=== PATIENT | female | born 1985 | race Caucasian/White ===

== ENCOUNTER 2016-09-01 09:18 | Emergency (ER) | payer OTHER ==
[2016-09-01] MEDS ORDERED: PENICILLIN G BENZATHINE 600,000 UNIT/ML SYRINGE IM STA (09:33)
[2016-09-01] MEDS ORDERED: DEXAMETHASONE 10 MG/ML VIAL PO STA (09:33)
[2016-09-01] MEDS ORDERED: DEXAMETHASONE 10 MG/ML VIAL ONE (10:09)
[2016-09-01] MEDS ORDERED: CHERRY SYRUP 10 ML UDC PO ONE (10:09)
[2016-09-01] MEDS ORDERED: PENICILLIN G BENZATHINE 600,000 UNIT/ML SYRINGE IM ONE ×2 (10:10→10:17)
== END 2016-09-01 10:35 | disposition home or self-care (01) ==
DX: J02.9 Acute pharyngitis, unspecified (principal)
CPT/HCPCS: 81025; 87070; 87430; 96372; 99283; A9270

== ENCOUNTER 2017-03-04 11:20 | Emergency (ER) | payer OTHER ==
[2017-03-04 11:58] LABS: BILIRUBIN,URINE NEGATIVE (NEGATIVE)
[2017-03-04 12:01] LABS: HCG UR QUAL NEGATIVE; UA w/ MICROSCOPIC CHARGE YES
[2017-03-04 12:27] LABS: UR CULTURE IF IND NOT INDICATED
[2017-03-04] MEDS ORDERED: cefTRIAXone 1 GM VIAL IM STA (12:56)
[2017-03-04] MEDS ORDERED: LIDOCAINE 1% 2 ML VIAL ONE (13:03)
[2017-03-04] MEDS ORDERED: cefTRIAXone 1 GM VIAL ONE (13:03)
--- NOTE | 2017-03-04 13:11 | ED Physician Documentation ---
PD HPI FEMALE - Stated complaint Stated Complaint: FEMALE - Chief complaint Chief Complaint: Abd Pain - History obtained from History obtained from: Patient - History of Present Illness Timing - onset: How many days ago (3) Timing - duration: Days (3) Timing - details: Gradual onset, Still present Associated symptoms: Back pain, Dysuria, Urinary frequency Contributing factors: No: Similar symptoms before: Diagnosis (UTI) Recently seen: Not recently seen - Additional information Additional information: 31-year-old female with symptoms of urinary urgency frequency and dysuria for the past 3 days has begun to develop some pain in her right flank and some nausea today. She has had low-grade fever. Review of Systems Constitutional: reports: Fever, Myalgias Eyes: denies: Decreased vision Ears: denies: Ear pain Nose: denies: Rhinorrhea / runny nose, Congestion Throat: denies: Sore throat Cardiac: denies: Chest pain / pressure Respiratory: denies: Dyspnea, Cough GI: reports: Abdominal Pain, Nausea. denies: Vomiting, Diarrhea : reports: Dysuria, Frequency Skin: denies: Rash Musculoskeletal: reports: Back pain. denies: Neck pain, Extremity pain Neurologic: denies: Generalized weakness, Focal weakness PD PAST MEDICAL HISTORY - Past Medical History Past Medical History: No - Past Surgical History Past Surgical History: No - Present Medications Home Medications: Ambulatory Orders Medication Instructions Recorded Confirmed Sulfamethoxazole/Trimethoprim 1 each PO BID #14 tablet 03/04/17 [Sulfamethoxazole-Tmp Ds Tablet] - Allergies Allergies/Adverse Reactions: Allergies Allergy/AdvReac Type Severity Reaction Status Date / Time No Known Drug Allergies Allergy Verified 03/04/17 11:28 - Social History Does the pt smoke?: No Smoking Status: Never smoker Does the pt drink ETOH?: No Does the pt have substance abuse?: No - Immunizations Immunizations are current?: Yes - POLST Patient has POLST: No PD ED PE NORMAL - Vitals Vital signs reviewed: Yes (Normal) - General General: No acute distress, Well developed/nourished - HEENT HEENT: Atraumatic, PERRL, EOMI - Neck Neck: Supple, no meningeal sign - Cardiac Cardiac: RRR, No murmur - Respiratory Respiratory: No respiratory distress, Clear bilaterally - Abdomen Abdomen: Soft, Non tender - Back Back: No spinal TTP, Other (right CVA tenderness to bimanual palpation) - Derm Derm: Normal color, Warm and dry, No rash - Extremities Extremities: No deformity, No edema - Neuro Neuro: No motor deficit, No sensory deficit - Psych Psych: Normal mood, Normal affect Results - Vitals Vitals: Vital Signs - 24 hr 03/04/17 11:25 Temperature 36.5 C Heart Rate 66 Respiratory 98 H Rate Blood Pressure 118/74 O2 Saturation 98 Oxygen O2 Source Room air - Labs Labs: Laboratory Tests 03/04/17 11:50 Urine Color YELLOW Urine Clarity HAZY Urine pH 6.0 Ur Specific [place] 1.020 Urine Protein NEGATIVE Urine Glucose (UA) NEGATIVE Urine Ketones NEGATIVE Urine Occult Blood TRACE-INTA Urine Nitrite NEGATIVE Urine Bilirubin NEGATIVE Urine Urobilinogen 0.2 (NORMAL) Ur Leukocyte Esterase SMALL H Urine RBC 6-10 H Urine WBC 6-10 H Ur Squamous Epith Cells MOD Squamous H Urine Bacteria Few Ur Microscopic Review INDICATED Urine Culture Comments NOT INDICATED Urine HCG, Qual NEGATIVE PD MEDICAL DECISION MAKING - ED course Complexity details: reviewed old records, reviewed results, re-evaluated patient , considered differential, d/w patient ED course: 31-year-old female with urinary symptoms and right flank pain has blood and white cells and bacteria in her urine urine does not make culture grade. She is treated in the emergency department with Rocephin IM and we will put her on some . Departure - Departure Disposition: 01 Home, Self Care Clinical Impression: Pyelonephritis Condition: Stable Instructions: ED Kidney Infec Female Follow-Up: JOZEF Mares [Provider Group] Prescriptions: Sulfamethoxazole/Trimethoprim [Sulfamethoxazole-Tmp Ds Tablet] 1 each PO BID # 14 tablet
[2017-03-04 13:22] VITALS: BP 114/71
== END 2017-03-04 13:21 | disposition home or self-care (01) ==
LOC: ED 11:20
DX: N12 Tubulo-interstitial nephritis, not specified as acute or chronic (principal)
CPT/HCPCS: 81001; 81003; 81025; 87086; 88108; 88305; 96372; 99283

== ENCOUNTER 2017-03-31 17:01 | Emergency (ER) | payer OTHER ==
[2017-03-31] MEDS ORDERED: AMOX/CLAV 875 MG/125 MG TABLET PO STA (17:02)
--- NOTE | 2017-03-31 17:04 | ED Physician Documentation ---
PD HPI ANIMAL BITE - Stated complaint Stated Complaint: R WRIST INJ - History obtained from History obtained from: Patient - History of Present Illness Location of injury(ies): Other (She was breaking up a dog fight and her son was seriously injured, she has a laceration on the anterior right wrist, tetanus is up-to-date.) Review of Systems Constitutional: reports: Reviewed and negative Cardiac: reports: Reviewed and negative Respiratory: reports: Reviewed and negative PD PAST MEDICAL HISTORY - Past Surgical History Past Surgical History: No - Present Medications Home Medications: Ambulatory Orders Medication Instructions Recorded Confirmed Sulfamethoxazole/Trimethoprim 1 each PO BID #14 tablet 03/04/17 [Sulfamethoxazole-Tmp Ds Tablet] Amox/Clav 875/125 [Augmentin] 1 each PO Q12H #14 tablet 03/31/17 - Allergies Allergies/Adverse Reactions: Allergies Allergy/AdvReac Type Severity Reaction Status Date / Time No Known Drug Allergies Allergy Verified 03/04/17 11:28 - Social History Does the pt smoke?: No Smoking Status: Never smoker Does the pt drink ETOH?: No Does the pt have substance abuse?: No - Immunizations Immunizations are current?: Yes - POLST Patient has POLST: No PD ED PE NORMAL - Vitals Vital signs reviewed: Yes - General General: Alert and oriented X 3, No acute distress - Extremities Extremities: Other (2 puncture wounds to the anterior right wrist with normal neurovascular status distal that good range of motion but some tenderness underlying this.) - Neuro Neuro: Alert and oriented X 3, Normal speech - Psych Psych: Normal mood, Normal affect Results - Vitals Vitals: Oxygen O2 Source Room air PD MEDICAL DECISION MAKING - ED course ED course: I would normally have xrayed the wrist but she was flying to [facility] With her critically ill son And as such we were fairly rushed. She is understanding that she will seek reevaluation if pain or symptoms are persistent and she was started on Augmentin. Tetanus was up-to-date. Departure - Departure Disposition: 01 Home, Self Care Clinical Impression: Dog bite of right wrist Qualifiers: Encounter type: initial encounter Qualified Code(s): S61.551A - Open bite of right wrist, initial encounter Condition: Good Record reviewed to determine appropriate education?: Yes Instructions: ED Bite Dog Prescriptions: Amox/Clav 875/125 [Augmentin] 1 each PO Q12H #14 tablet Comments: If you have persistent pain or any evidence of wound infection including swelling, drainage, fever, please seek reevaluation for further workup given the rapidity of your visit and getting your son transferred.
[2017-03-31] MEDS ORDERED: AMOX/CLAV 875 MG/125 MG TABLET PO ONE (17:09)
== END 2017-03-31 17:10 | disposition home or self-care (01) ==
LOC: ED 17:01
DX: S61.551A Open bite of right wrist, initial encounter (principal); W54.0XXA Bitten by dog, initial encounter; Y93.89 Activity, other specified
CPT/HCPCS: 99283; A9270

== ENCOUNTER 2017-10-12 12:46 | Emergency (ER) | payer OTHER ==
--- NOTE | 2017-10-12 14:08 | ED Physician Documentation ---
History of Present Illness - Stated complaint Stated Complaint: BILAT FLANK PX/ABD PX - Chief complaint Chief Complaint: General - History obtained from History obtained from: Patient - History of Present Illness Timing: Other (She has frequent UTIs and usually self treats with pushing fluids , she has had classic UTI symptoms with burning and frequency for a few days but today has bilateral flank pain, right more than left with nausea but no vomiting or fever.) Review of Systems Constitutional: denies: Fever, Chills Cardiac: denies: Chest pain / pressure, Palpitations Respiratory: denies: Dyspnea, Cough GI: reports: Abdominal Pain, Nausea. denies: Vomiting, Constipation, Diarrhea : reports: Dysuria, Frequency PD PAST MEDICAL HISTORY - Past Medical History Past Medical History: No - Past Surgical History Past Surgical History: No - Present Medications Home Medications: Ambulatory Orders Medication Instructions Recorded Confirmed Cephalexin [Keflex] 500 mg PO QID #28 capsule 10/12/17 Ondansetron HCl [Zofran] 4 mg PO Q6H PRN #10 tablet 10/12/17 - Allergies Allergies/Adverse Reactions: Allergies Allergy/AdvReac Type Severity Reaction Status Date / Time No Known Drug Allergies Allergy Verified 10/12/17 13:05 - Social History Does the pt smoke?: No Smoking Status: Never smoker Does the pt drink ETOH?: No Does the pt have substance abuse?: No - Immunizations Immunizations are current?: Yes - POLST Patient has POLST: No PD ED PE NORMAL - Vitals Vital signs reviewed: Yes - General General: Alert and oriented X 3, No acute distress - Abdomen Abdomen: Normal bowel sounds, Soft, Non tender - Back Back: Other (Moderate right flank tenderness) - Derm Derm: Normal color, Warm and dry - Neuro Neuro: Alert and oriented X 3, Normal speech Results - Vitals Vitals: Vital Signs - 24 hr 10/12/17 13:00 Temperature 36.8 C Heart Rate 68 Respiratory 15 Rate Blood Pressure 117/74 O2 Saturation 96 Oxygen O2 Source Room air - Labs Labs: Laboratory Tests 10/12/17 14:00 Urine Color ORANGE Urine Clarity CLEAR Urine pH 5.0 Ur Specific [place] 1.020 Urine Protein Urine Glucose (UA) Urine Ketones NEGATIVE Urine Occult Blood NEGATIVE Urine Nitrite Urine Bilirubin NEGATIVE Urine Urobilinogen Ur Leukocyte Esterase Urine RBC None Seen Urine WBC 0-3 Ur Squamous Epith Cells RARE Squamous Urine Bacteria Rare Ur Microscopic Review INDICATED Urine Culture Comments NOT INDICATED Urine HCG, Qual NEGATIVE PD MEDICAL DECISION MAKING - ED course ED course: Seems pretty consistent with pyelonephritis despite uninterpretable urine due to phenazopyridine use we will treat as such. No abdominal tenderness. Departure - Departure Disposition: Home, Self Care Clinical Impression: Pyelonephritis Condition: Good Record reviewed to determine appropriate education?: Yes Instructions: Pyelonephritis Dc Prescriptions: Cephalexin [Keflex] 500 mg PO QID #28 capsule Ondansetron HCl [Zofran] 4 mg PO Q6H PRN #10 tablet PRN Reason: Nausea / Vomiting Comments: Call your doctor to arrange a follow-up appointment, make the next available appointment. In the interim, return anytime if worse or if new symptoms develop.
[2017-10-12 14:10] LABS: BILIRUBIN,URINE NEGATIVE (NEGATIVE); KETONES,URINE (UA) NEGATIVE (NEGATIVE); OCCULT BLOOD,URINE NEGATIVE (NEGATIVE)
[2017-10-12 14:11] LABS: CLARITY,URINE CLEAR (CLEAR)
[2017-10-12 14:12] LABS: HCG UR QUAL NEGATIVE
[2017-10-12 14:18] LABS: BACTERIA,URINE Rare /HPF (None Seen); RBC,URINE None Seen /HPF (0-5); SQUAMOUS EPITHELIAL CELL,UR RARE Squamous (<= Few)
[2017-10-12] MEDS ORDERED: cefTRIAXone 1 GM VIAL IM STA (14:30)
[2017-10-12] MEDS ORDERED: ONDANSETRON ODT 4 MG TABLET TL STA (14:30)
[2017-10-12] MEDS ORDERED: LIDOCAINE 1% 2 ML VIAL SUBQ ONE (14:30)
[2017-10-12 14:42] VITALS: BP 116/65
== END 2017-10-12 14:41 | disposition home or self-care (01) ==
LOC: ED 12:46
DX: N12 Tubulo-interstitial nephritis, not specified as acute or chronic (principal)
CPT/HCPCS: 81001; 81025; 96372; 99283; Q0162; 81003; 87086

== ENCOUNTER 2018-12-12 09:33 | Emergency (ER) | payer OTHER ==
--- NOTE | 2018-12-12 09:37 | ED Physician Documentation ---
PD HPI BACK PAIN - Stated complaint Stated Complaint: BACK PX - History obtained from History obtained from: Patient, Family - History of Present Illness Timing - onset: How many days ago (3) Timing - duration: Days Timing - details: Gradual onset Location: Mid, Lower, Other (back pain) Quality: Pain, Throbbing Associated symptoms: No: Fever, Weakness, Numbness, Incontinent of urine, Unable to urinate, Hematuria, Incontinent of stool Improves with: Rest Worsened by: Movement, Twisting, Palpation Contributing factors: Other (Patient has hx of chronic back pain and has a L4/5 disc herniation confrimed on MRI. 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 No: Lifting, Twisting, Trauma, Anticoagulated, Cancer, IVDA Similar symptoms before: Diagnosis (L4/5 disc herniation) Recently seen: Not recently seen Review of Systems Ten Systems: 10 systems reviewed and negative Constitutional: denies: Fever, Chills Cardiac: denies: Chest pain / pressure Respiratory: denies: Dyspnea GI: denies: Abdominal Pain, Nausea, Vomiting : denies: Dysuria, Frequency, Hesitancy, Unable to Void, Incontinent, Hematuria, Discharge Musculoskeletal: reports: Back pain. denies: Neck pain, Extremity pain, Joint pain Neurologic: denies: Focal weakness, Numbness PD PAST MEDICAL HISTORY - Past Surgical History Past Surgical History: No - Present Medications Home Medications: Ambulatory Orders Medication Instructions Recorded Confirmed Cyclobenzaprine [Flexeril] 10 mg PO TID PRN #20 tablet 12/12/18 RX: Gabapentin 300 mg PO DAILY #20 capsule 12/12/18 - Allergies Allergies/Adverse Reactions: Allergies Allergy/AdvReac Type Severity Reaction Status Date / Time No Known Drug Allergies Allergy Verified 12/12/18 09:43 - Social History Does the pt smoke?: No Smoking Status: Never smoker Does the pt drink ETOH?: No Does the pt have substance abuse?: No - Immunizations Immunizations are current?: Yes - POLST Patient has POLST: No PD ED PE NORMAL - Vitals Vital signs reviewed: Yes - HEENT HEENT: Atraumatic - Neck Neck: Supple, no meningeal sign - Cardiac Cardiac: RRR - Respiratory Respiratory: No respiratory distress - Abdomen Abdomen: Normal bowel sounds - Female Female : Deferred - Back Back: No CVA TTP, No spinal TTP, Other - Derm Derm: Normal color, Warm and dry, No rash - Extremities Extremities: No deformity, No tenderness to palpate, Normal ROM s pain, No edema, No calf tenderness / cord - Neuro Neuro: Alert and oriented X 3 Eye Opening: Spontaneous Motor: Obeys Commands Verbal: Oriented GCS Score: 15 - Psych Psych: Normal mood, Normal affect - Free text exam Free text exam: bilateral paraspinal pain diffusely across low back at L4/L5 region and midline back pain PD ED PE EXPANDED - Back Back: Normal exam, Normal ROM, Vertebral tenderness. 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 No red flags for back pain. Given analgesics for her symptoms with some relief in the ED. Advised pt to fu with PCP for further eval of her pain and management of her medications Departure - Departure Disposition: 01 Home, Self Care Clinical Impression: Back pain at L4-L5 level Condition: Stable Record reviewed to determine appropriate education?: Yes Instructions: ED Low Back Pain Injury Follow-Up: your, doctor [Other] - Within 1 week (recheck your symptoms) Prescriptions: Cyclobenzaprine [Flexeril] 10 mg PO TID PRN #20 tablet PRN Reason: Spasms RX: Gabapentin 300 mg PO DAILY #20 capsule Comments: You were evaluated today for low back pain. This is likely due to a back muscle strain or disc herniation with radiculopathy (pinching on a nerve). You can take gabapentin for pain to decrease spasming and nerve pain. Continue to use ibuprofen 600mg 3 times a day for a week to reduce any swelling around the nerve. You can additionally take cyclobenzaprine for spasms if pain is severe. Return to the ED if trouble urinating, incontinence, weakness or numbness develop. Discharge Date/Time: 12/12/18 11:59
[2018-12-12] MEDS ORDERED: KETOROLAC 60 MG/2 ML VIAL IM STA (10:19)
[2018-12-12] MEDS ORDERED: diazePAM 5 MG TABLET PO STA (10:19)
[2018-12-12] MEDS ORDERED: GABAPENTIN 100 MG CAPSULE PO STA (10:20)
[2018-12-12] MEDS ORDERED: LIDOCAINE PATCH 5% TOP STA (10:20)
[2018-12-12 11:58] VITALS: BP 102/64
== END 2018-12-12 11:59 | disposition home or self-care (01) ==
LOC: ED 09:33
DX: M54.5 Low back pain (principal)
CPT/HCPCS: 96372; 99283; A9270

== ENCOUNTER 2019-05-29 11:33 | Day surgery (SDC) | payer OTHER ==
--- NOTE | 2019-05-29 11:58 | ED Physician Documentation ---
History of Present Illness - Stated complaint Stated Complaint: ABD PX - Chief complaint Chief Complaint: Abd Pain - Additonal information Additional information: This is a 34 year old female who presents with RLQ abdominal pain and nausea. The pain began last night, has been fairly constant though has relented at times, and has been associate with nausea but no vomiting. It worsened throughout the day to the point Words been quite severe. Pressing anywhere on her belly will cause some tenderness in the lower quadrant. She denies any history of abdominal surgeries. No fever. She last ate food at 830 this morning. She did have a sip of water on her way into the hospital, but has not drank anything significant prior to this. Review of Systems Constitutional: denies: Fever Cardiac: denies: Chest pain / pressure Respiratory: denies: Dyspnea GI: reports: Abdominal Pain, Nausea : denies: Dysuria Skin: denies: Rash Neurologic: denies: Generalized weakness PD PAST MEDICAL HISTORY - Past Medical History Musculoskeletal: Chronic back pain - Past Surgical History Past Surgical History: No - Present Medications Home Medications: Ambulatory Orders Medication Instructions Recorded Confirmed Cyclobenzaprine [Flexeril] 10 mg PO TID PRN #20 tablet 12/12/18 Gabapentin 300 mg PO DAILY #20 capsule 12/12/18 - Allergies Allergies/Adverse Reactions: Allergies Allergy/AdvReac Type Severity Reaction Status Date / Time No Known Drug Allergies Allergy Verified 05/29/19 11:41 - Social History Does the pt smoke?: No Smoking Status: Never smoker Does the pt drink ETOH?: No Does the pt have substance abuse?: No - Immunizations Immunizations are current?: Yes - POLST Patient has POLST: No PD ED PE NORMAL - Vitals Vital signs reviewed: Yes - General General: Alert and oriented X 3, No acute distress - HEENT HEENT: PERRL - Neck Neck: Supple, no meningeal sign - Cardiac Cardiac: RRR, No murmur - Respiratory Respiratory: Clear bilaterally - Abdomen Abdomen: Other (Soft, nondistended. There is tenderness in the right lower quadrant, and additionally palpation of the left lower quadrant causes pain in the right lower quadrant. Negative obturator sign. No significant right upper quadrant and left upper quadrant tenderness. No guarding.) - Derm Derm: Warm and dry - Extremities Extremities: No deformity - Neuro Neuro: Alert and oriented X 3 - Psych Psych: Normal mood, Normal affect Results - Vitals Vitals: Oxygen O2 Source Room air - Labs Labs: Microbiology 05/29/19 11:50 Urine Culture - Final Urine,Clean Catch Less Than 10,000 COLONIES/ML UROGENITAL SINDI Laboratory Tests 05/29/19 05/29/19 05/29/19 11:50 12:28 12:28 WBC 11.7 H RBC 4.50 Hgb 13.7 Hct 40.0 MCV 88.9 MCH 30.4 MCHC 34.3 RDW 12.7 Plt Count 228 MPV 10.4 Neut # (Auto) 7.9 H Lymph # (Auto) 2.5 [place] # (Auto) 1.0 Eos # (Auto) 0.3 Baso # (Auto) 0.0 Absolute Nucleated RBC 0.00 Nucleated RBC % 0.0 Sodium 137 Potassium 3.3 L Chloride 105 Carbon Dioxide 24 Anion Gap 8.0 BUN 11 Creatinine 0.5 Estimated GFR (MDRD) 141 Glucose 108 H Calcium 8.8 Total Bilirubin 0.7 AST 16 ALT 25 Alkaline Phosphatase 53 Total Protein 7.6 Albumin 4.3 Globulin 3.3 Albumin/Globulin Ratio 1.3 Lipase 26 Serum HCG, Qual Urine Color YELLOW Urine Clarity CLEAR Urine pH 7.0 Ur Specific [place] 1.010 Urine Protein NEGATIVE Urine Glucose (UA) NEGATIVE Urine Ketones NEGATIVE Urine Occult Blood NEGATIVE Urine Nitrite NEGATIVE Urine Bilirubin NEGATIVE Urine Urobilinogen 0.2 (NORMAL) Ur Leukocyte Esterase TRACE H Urine RBC 0-5 Urine WBC 4-5 Ur Squamous Epith Cells FEW Squamous Urine Bacteria Rare Ur Microscopic Review INDICATED Urine Culture Comments INDICATED 05/29/19 12:28 WBC RBC Hgb Hct MCV MCH MCHC RDW Plt Count MPV Neut # (Auto) Lymph # (Auto) [place] # (Auto) Eos # (Auto) Baso # (Auto) Absolute Nucleated RBC Nucleated RBC % Sodium Potassium Chloride Carbon Dioxide Anion Gap BUN Creatinine Estimated GFR (MDRD) Glucose Calcium Total Bilirubin AST ALT Alkaline Phosphatase Total Protein Albumin Globulin Albumin/Globulin Ratio Lipase Serum HCG, Qual NEGATIVE Urine Color Urine Clarity Urine pH Ur Specific [place] Urine Protein Urine Glucose (UA) Urine Ketones Urine Occult Blood Urine Nitrite Urine Bilirubin Urine Urobilinogen Ur Leukocyte Esterase Urine RBC Urine WBC Ur Squamous Epith Cells Urine Bacteria Ur Microscopic Review Urine Culture Comments - Rads (name of study) CT abd/pelvis Radiology: Other (Acute uncomplicated appendicitis, cholelithiasis.) PD MEDICAL DECISION MAKING - ED course Complexity details: considered differential (Nephrolithiasis, appendicitis, gastroenteritis, abdominal cramping, constipation, Ovarian torsion) ED course: On arrival patient is nontoxic-appearing she has focal tenderness in the right lower quadrant. IV was inserted labs are drawn patient given morphine and Zofran for pain control. CT the abdomen pelvis was obtained showing acute uncomplicated appendicitis. She was updated with the result and the recommendation for appendectomy. She will be started on antibiotics and transferred to the OR for appendectomy with Dr. Mcfadden. Departure - Departure Disposition: ED Transfer to [facility] Clinical Impression: Acute appendicitis Qualifiers: Acute appendicitis type: with localized peritonitis Appendicitis gangrene presence: without gangrene Appendicitis perforation presence: without perforation Appendicitis abscess presence: without abscess Qualified Code(s): K35.30 - Acute appendicitis with localized peritonitis, without perforation or gangrene Condition: Good Discharge Date/Time: 05/29/19 18:05
[2019-05-29] MEDS ORDERED: MORPHINE 10 MG/ML VIAL IVP STA (12:06)
[2019-05-29] MEDS ORDERED: ONDANSETRON 4 MG/2 ML VIAL IVP STA (12:06)
[2019-05-29] MEDS ORDERED: IOVERSOL 320 100 ML VIAL IVP ONE ×2 (12:11→13:32)
[2019-05-29 12:42] LABS: BASOPHILS % (AUTO) 0.3 %; EOSINOPHILS # (AUTO) 0.3 10^3/uL (0.0-0.7); EOSINOPHILS % (AUTO) 2.1 %; HGB - HEMOGLOBIN 13.7 g/dL (12.0-16.0); LYMPHOCYTES # (AUTO) 2.5 10^3/uL (1.5-3.5); LYMPHOCYTES % (AUTO) 21.4 %; MEAN CORPUSCULAR HEMOGLOBIN 30.4 pg (27.0-31.0); MEAN CORPUSCULAR HGB CONC 34.3 g/dL (32.0-36.0); MEAN CORPUSCULAR VOLUME 88.9 fL (81.0-99.0); MEAN PLATELET VOLUME 10.4 fL (7.9-10.8); MONOCYTES % (AUTO) 8.3 %; NEUTROPHILS # (AUTO) 7.9 10^3/uL (1.5-6.6); NEUTROPHILS % (AUTO) 67.5 %; PLT - PLATELET COUNT 228 10^3/uL (130-450); RED CELL DISTRIBUTION WIDTH 12.7 % (12.0-15.0); WHITE BLOOD COUNT 11.7 x10^3/uL (4.8-10.8)
[2019-05-29 13:05] LABS: ALBUMIN 4.3 g/dL (3.2-5.5); ALBUMIN/GLOBULIN RATIO 1.3 (1.0-2.2); BILIRUBIN,TOTAL 0.7 mg/dL (0.2-1.0); CALCIUM 8.8 mg/dL (8.5-10.3); CREATININE 0.5 mg/dL (0.4-1.0); TOTAL PROTEIN 7.6 g/dL (6.7-8.2)
[2019-05-29 13:11] LABS: HCG,QUALITATIVE BLOOD NEGATIVE
[2019-05-29 13:42] LABS: BILIRUBIN,URINE NEGATIVE (NEGATIVE); GLUCOSE, URINE (UA) NEGATIVE (NEGATIVE); KETONES,URINE (UA) NEGATIVE (NEGATIVE); LEUKOCYTE ESTERASE, URINE TRACE (NEGATIVE); NITRITE,URINE NEGATIVE (NEGATIVE); OCCULT BLOOD,URINE NEGATIVE (NEGATIVE); PROTEIN,URINE NEGATIVE (NEGATIVE); UROBILINOGEN,URINE 0.2 (NORMAL) E.U./dL (NORMAL)
[2019-05-29 13:58] LABS: CLARITY,URINE CLEAR (CLEAR)
[2019-05-29 14:01] LABS: BACTERIA,URINE Rare /HPF (None Seen); RBC,URINE 0-5 /HPF (0-5); SQUAMOUS EPITHELIAL CELL,UR FEW Squamous (<= Few)
--- NOTE | 2019-05-29 14:01 | CT Report ---
Reason: RLQ tenderness, nausea Procedure Date: 05/29/2019 Accession Number: [id number] / [id number] Procedure: CT - Abdomen/Pelvis W CPT Code: Final Report FULL RESULT: EXAM: CT ABDOMEN AND PELVIS EXAM DATE: 05/29/2019 01:30 PM HISTORY: RLQ tenderness, nausea COMPARISON: NONE TECHNIQUE: Routine helical CT imaging was performed through the abdomen and pelvis. IV contrast: 100 mL Optiray 320. Enteric contrast: No. Reconstructions: Coronal and sagittal. In accordance with CT protocol optimization, one or more of the following dose reduction techniques were utilized for this exam: automated exposure control, adjustment of mA and/or KV based on patient size, or use of iterative reconstructive technique. FINDINGS: LOWER CHEST: Unremarkable. SOLID ORGANS: Within exam limitations, there is no significant abnormality of the liver, spleen, pancreas, adrenal glands or kidneys. GALLBLADDER/BILE DUCTS: Positive for cholelithiasis. No abnormal biliary distention. PERITONEAL CAVITY/BOWEL: No abnormal bowel distention. Positive for mild appendiceal prominence with periappendiceal inflammation and appendicolith noted. Findings are consistent with acute appendicitis. No associated abscess. Possible trace free fluid in the pelvis. CENTRAL RETROPERITONEUM: Essentially unremarkable aorta. No aneurysm. No retroperitoneal lymphadenopathy. PELVIS: Unremarkable urinary bladder contour. No intravesicular calculi. Unremarkable uterine contour. OTHER: Skeleton: No significant skeletal abnormality. Abdominal wall: No significant abnormality. IMPRESSION: Positive for uncomplicated acute appendicitis. Positive for cholelithiasis. Otherwise unremarkable. RADIA
[2019-05-29] MEDS ORDERED: ENOXAPARIN 30 MG/0.3 ML SYRINGE SUBQ STA (14:24)
[2019-05-29] MEDS ORDERED: PIPERACILLIN/TAZOBACTAM 3.375 GM in SODIUM CHLORIDE 0.9% MINIBAG 100 ML IV STA (14:24)
[2019-05-29] MEDS ORDERED: SODIUM CHLORIDE 0.9% 1,000 ML IV ONE (14:25)
[2019-05-29] MEDS ORDERED: KETOROLAC 30 MG/ML VIAL IVP ONE (14:48)
[2019-05-29] MEDS ORDERED: MIDAZOLAM 2 MG/2 ML VIAL IVP ONE (14:48)
[2019-05-29] MEDS ORDERED: DEXAMETHASONE 4 MG/ML VIAL IVP ONE (14:48)
[2019-05-29] MEDS ORDERED: GLYCOPYRROLATE 1 MG/5 ML VIAL IVP ONE (14:48)
[2019-05-29] MEDS ORDERED: PROPOFOL 200 MG/20 ML VIAL IVP ONE (14:48)
[2019-05-29] MEDS ORDERED: NEOSTIGMINE 1 MG/1 ML 10 ML MDV IVP ONE (14:48)
[2019-05-29] MEDS ORDERED: ROCURONIUM 50 MG/5 ML VIAL IVP ONE (14:48)
--- NOTE | 2019-05-29 15:11 | HISTORY & PHYSICAL EXAMINATION ---
HPI - Admitted From Admitted from: ED - History of Present Illness Severity at the worst: reports: Severe Pain Quality: reports: Sharp Context-Pain started w/: reports: Movement Timing: reports: Abrupt onset, Gradual onset Worsened by: reports: Movement Associated symptoms: reports: Nausea HPI Comment/Other: This is a 34 year old female who presents with RLQ abdominal pain and nausea. The pain began last night, has been fairly constant though has relented at times, and has been associate with nausea but no vomiting. It worsened throughout the day to the point Words been quite severe. Pressing anywhere on her belly will cause some tenderness in the lower quadrant. She denies any history of abdominal surgeries. No fever. She last ate food at 830 this morning. She did have a sip of water on her way into the hospital, but has not drank anything significant prior to this. PMH/PSH - Past Medical History Musculoskeletal: positive: Chronic back pain MRSA Hx?: No Social & Family Hx - Social History Does the pt smoke?: No Smoking Status: Never smoker Does the pt drink ETOH?: No Does the pt have substance abuse?: No - POLST Patient has POLST: No Meds/Allgy - Home Medications Home Medications: Ambulatory Orders Medication Instructions Recorded Confirmed Cyclobenzaprine [Flexeril] 10 mg PO TID PRN #20 tablet 12/12/18 Gabapentin 300 mg PO DAILY #20 capsule 12/12/18 - Allergies Allergies/Adverse Reactions: Allergies Allergy/AdvReac Type Severity Reaction Status Date / Time No Known Drug Allergies Allergy Verified 05/29/19 11:41 Exam - Vital Signs Reviewed Vital Signs: Yes Vital Signs: Vital Signs x48h Temp Pulse Resp BP Pulse Ox 05/29/19 11:41 36.8 C 86 15 129/74 100 - Physical Exam General Appearance: positive: Moderate distress Eyes Bilateral: positive: Normal inspection Neck: positive: Nml inspection Respiratory: positive: No respiratory distress, Breath sounds nml Cardiovascular: positive: Regular rate & rhythm Results - Lab Results Lab results reviewed: Yes Fish Bones: 05/29/19 12:28 05/29/19 12:28 Other Lab Results: Lab Results x24hrs 05/29/19 05/29/19 05/29/19 Range/Units 12:28 12:28 12:28 WBC 11.7 H (4.8-10.8) x10^3/uL RBC 4.50 (4.20-5.40) 10^6/uL Hgb 13.7 (12.0-16.0) g/dL Hct 40.0 (37.0-47.0) % MCV 88.9 (81.0-99.0) fL MCH 30.4 (27.0-31.0) pg MCHC 34.3 (32.0-36.0) g/dL RDW 12.7 (12.0-15.0) % Plt Count 228 (130-450) 10^3/uL MPV 10.4 (7.9-10.8) fL Neut # (Auto) 7.9 H (1.5-6.6) 10^3/uL Lymph # (Auto) 2.5 (1.5-3.5) 10^3/uL [place] # (Auto) 1.0 (0.0-1.0) 10^3/uL Eos # (Auto) 0.3 (0.0-0.7) 10^3/uL Baso # (Auto) 0.0 (0.0-0.1) 10^3/uL Absolute Nucleated RBC 0.00 x10^3/uL Nucleated RBC % 0.0 /100WBC Sodium 137 (135-145) mmol/L Potassium 3.3 L (3.5-5.0) mmol/L Chloride 105 (101-111) mmol/L Carbon Dioxide 24 (21-32) mmol/L Anion Gap 8.0 (6-13) BUN 11 (6-20) mg/dL Creatinine 0.5 (0.4-1.0) mg/dL Estimated GFR (MDRD) 141 (>89) Glucose 108 H (70-100) mg/dL Calcium 8.8 (8.5-10.3) mg/dL Total Bilirubin 0.7 (0.2-1.0) mg/dL AST 16 (10-42) IU/L ALT 25 (10-60) IU/L Alkaline Phosphatase 53 (42-121) IU/L Total Protein 7.6 (6.7-8.2) g/dL Albumin 4.3 (3.2-5.5) g/dL Globulin 3.3 (2.1-4.2) g/dL Albumin/Globulin Ratio 1.3 (1.0-2.2) Lipase 26 (22-51) U/L Serum HCG, Qual NEGATIVE Urine Color Urine Clarity (CLEAR) Urine pH (5.0-7.5) PH Ur Specific [place] (1.002-1.030) Urine Protein (NEGATIVE) mg/dL Urine Glucose (UA) (NEGATIVE) mg/dL Urine Ketones (NEGATIVE) mg/dL Urine Occult Blood (NEGATIVE) Urine Nitrite (NEGATIVE) Urine Bilirubin (NEGATIVE) Urine Urobilinogen (NORMAL) E.U./dL Ur Leukocyte Esterase (NEGATIVE) Urine RBC (0-5) /HPF Urine WBC (0-5) /HPF Ur Squamous Epith Cells (<= Few) Urine Bacteria (None Seen) /HPF Ur Microscopic Review Urine Culture Comments 05/29/19 Range/Units 11:50 WBC (4.8-10.8) x10^3/uL RBC (4.20-5.40) 10^6/uL Hgb (12.0-16.0) g/dL Hct (37.0-47.0) % MCV (81.0-99.0) fL MCH (27.0-31.0) pg MCHC (32.0-36.0) g/dL RDW (12.0-15.0) % Plt Count (130-450) 10^3/uL MPV (7.9-10.8) fL Neut # (Auto) (1.5-6.6) 10^3/uL Lymph # (Auto) (1.5-3.5) 10^3/uL [place] # (Auto) (0.0-1.0) 10^3/uL Eos # (Auto) (0.0-0.7) 10^3/uL Baso # (Auto) (0.0-0.1) 10^3/uL Absolute Nucleated RBC x10^3/uL Nucleated RBC % /100WBC Sodium (135-145) mmol/L Potassium (3.5-5.0) mmol/L Chloride (101-111) mmol/L Carbon Dioxide (21-32) mmol/L Anion Gap (6-13) BUN (6-20) mg/dL Creatinine (0.4-1.0) mg/dL Estimated GFR (MDRD) (>89) Glucose (70-100) mg/dL Calcium (8.5-10.3) mg/dL Total Bilirubin (0.2-1.0) mg/dL AST (10-42) IU/L ALT (10-60) IU/L Alkaline Phosphatase (42-121) IU/L Total Protein (6.7-8.2) g/dL Albumin (3.2-5.5) g/dL Globulin (2.1-4.2) g/dL Albumin/Globulin Ratio (1.0-2.2) Lipase (22-51) U/L Serum HCG, Qual Urine Color YELLOW Urine Clarity CLEAR (CLEAR) Urine pH 7.0 (5.0-7.5) PH Ur Specific [place] 1.010 (1.002-1.030) Urine Protein NEGATIVE (NEGATIVE) mg/dL Urine Glucose (UA) NEGATIVE (NEGATIVE) mg/dL Urine Ketones NEGATIVE (NEGATIVE) mg/dL Urine Occult Blood NEGATIVE (NEGATIVE) Urine Nitrite NEGATIVE (NEGATIVE) Urine Bilirubin NEGATIVE (NEGATIVE) Urine Urobilinogen 0.2 (NORMAL) (NORMAL) E.U./dL Ur Leukocyte Esterase TRACE H (NEGATIVE) Urine RBC 0-5 (0-5) /HPF Urine WBC 4-5 (0-5) /HPF Ur Squamous Epith Cells FEW Squamous (<= Few) Urine Bacteria Rare (None Seen) /HPF Ur Microscopic Review INDICATED Urine Culture Comments INDICATED - Diagnostic Imaging Results Diagnostic Imaging Results: positive: Final report reviewed Impression/Plan - Problem List Problem List: Acute appendicitis Appendectomy
--- NOTE | 2019-05-29 15:38 | ANESTHESIA ---
Pre-Anesthesia VS, & Labs - Diagnosis acute appendicitis - Procedure laparoscopic appendectomy Vital Signs: Temp Pulse Resp BP Pulse Ox 36.8 C 86 15 129/74 100 05/29/19 11:41 05/29/19 11:41 05/29/19 11:41 05/29/19 11:41 05/29/19 11:41 Height 5 ft 7 in Weight (kg) 89.811 kg Body Mass Index 31.0 - NPO >8 hours (8am food) - Is Patient ?: No - Lab Results Current Lab Results: Laboratory Tests 05/29/19 12:28: Serum HCG, Qual NEGATIVE 05/29/19 12:28: Sodium 137, Potassium 3.3 L, Chloride 105, Carbon Dioxide 24, Anion Gap 8.0, BUN 11, Creatinine 0.5, Estimated GFR (MDRD) 141, Glucose 108 H, Calcium 8.8, Total Bilirubin 0.7, AST 16, ALT 25, Alkaline Phosphatase 53, Total Protein 7.6, Albumin 4.3, Globulin 3.3, Albumin/Globulin Ratio 1.3, Lipase 26 05/29/19 12:28: WBC 11.7 H, RBC 4.50, Hgb 13.7, Hct 40.0, MCV 88.9, MCH 30.4, MCHC 34.3, RDW 12.7, Plt Count 228, MPV 10.4, Neut # (Auto) 7.9 H, Lymph # (Auto) 2.5, [place] # (Auto) 1.0, Eos # (Auto) 0.3, Baso # (Auto) 0.0, Absolute Nucleated RBC 0.00, Nucleated RBC % 0.0 Fish Bones: 05/29/19 12:28 05/29/19 12:28 Home Medications and Allergies Allergies/Adverse Reactions: Allergies Allergy/AdvReac Type Severity Reaction Status Date / Time No Known Drug Allergies Allergy Verified 05/29/19 11:41 Anes History & Medical History - Anesthetic History Anesthesia Complications: reports: No previous complications - Medical History Cardiovascular: reports: None Pulmonary: reports: None Gastrointestinal: reports: None Urinary: reports: None Neuro: reports: None Musculoskeletal: reports: Chronic back pain Smoking Status: Never smoker Exam General: Alert Dental: WNL Mouth Opening: Greater than 4 Fingerbreadths Neck Mobility: Normal Mallampati classification: II Thyromental Distance: greater than 6 cm Respiratory: Lungs clear Cardiovascular: Regular rate, Normal S1, Normal S2 Mental/Cognitive Status: Alert/Oriented X3 Plan Anesthesia Type: General Consent for Procedure(s) Verified and Reviewed: Yes Code Status: Attempt Resuscitation ASA classification: 1-Healthy patient Is this case an emergency?: Yes
[2019-05-29] MEDS ORDERED: BUPIVACAINE 0.5% PF 30 ML VIAL ONE (17:16)
[2019-05-29] MEDS ORDERED: LACTATED RINGERS 1,000 ML IV ONE (18:09)
[2019-05-29] MEDS ORDERED: BUPIVACAINE 0.5% PF 30 ML VIAL SUBQ ONE (18:50)
[2019-05-29] MEDS ORDERED: ONDANSETRON 4 MG/2 ML VIAL IVP PRN (19:27)
[2019-05-29] MEDS ORDERED: SODIUM CHLORIDE FLUSH 0.9% 10 ML SYRINGE IVP PRN (19:27)
--- NOTE | 2019-05-29 19:27 | IMMEDIATE POSTOPERATIVE NOTE ---
Immediate Postoperative Note - Procedure Note Procedure Date: 05/29/19 Pre-Op Diagnosis: Acute appendicitis Procedure: Lap appy Post-Op Diagnosis: Acute appendicitis Primary Surgeon: Ky Venetian Blind Assembler: Jacquelyn Anesthesia Type: General ET tube Findings: Early acute suppurative appendicitis Complications: No complications Estimated Blood Loss (in cc): 3 Specimens and Cultures: Vermiform appendix Plan of Care: Continue as Outpatient status Clear liquids
[2019-05-29] MEDS: HYDROmorphone 1 MG/ML CARPUJECT ONE ×2 (19:41→19:49)
[2019-05-29] MEDS: fentaNYL 100 MCG/2 ML VIAL ONE ×3 (19:54→20:05)
--- NOTE | 2019-05-29 20:35 | Discharge Plan ---
Discharge Plan Problem Reviewed?: Yes Disposition: Home, Self Care Condition: Good Diet: Regular Activity Restrictions: 10# wt limit for 2 wks Shower Restrictions: No (May shower) Driving Restrictions: No (May drive) Weight Bearing: Full Weight No Smoking: If you smoke, Please STOP! Call for help. Follow-up with: Abran Mcpherson DO [Primary Care Provider] -
[2019-05-30] MEDS ORDERED: SODIUM CHLORIDE FLUSH 0.9% 10 ML SYRINGE IVP SCH (01:00)
--- NOTE | 2019-05-30 03:10 | OPERATIVE REPORT ---
DATE OF SERVICE: 05/29/2019 Physician: Abran Mcpherson DO PREOPERATIVE DIAGNOSIS: Acute appendicitis. POSTOPERATIVE DIAGNOSIS: Acute appendicitis. PROCEDURE: Laparoscopic appendectomy. SURGEON: Abran Mcpherson DO ANESTHESIA PROVIDER: Faith Holt CRNA. ANESTHESIA: General endotracheal tube with local assist. ESTIMATED BLOOD LOSS: 3 mL FINDINGS: Early acute suppurative appendicitis. COMPLICATIONS: None. CONDITION: Stable upon transport to recovery. HISTORY: The patient is a 34-year-old white female presenting through the emergency department with signs and symptoms consistent with acute appendicitis. A CT scan was positive and her examination wa s consistent as well with acute appendicitis. DESCRIPTION OF PROCEDURE: The patient was taken to the operating room and under the above-mentioned anesthetic, prepped and draped in the usual sterile manner. A vertically oriented intraumbilical inc ision was utilized to gain entrance into the abdominal cavity by way of the 12 mm Visiport catheter. Once in the abdominal cavity, the pneumoperitoneum was created and two 5 mm ports were placed suprap ubically and left lateral abdomen, respectively. The appendix was eventually identified and mobilize d. The appendix was then mobilized further and a window created between the mesoappendix and the harrison endiceal base. The appendix was then amputated using the Endo-ZENON vascular cutting/stapling device. The mesoappendix was divided using the LigaSure device. Subsequently, the appendix was placed in an EndoCatch bag and brought out through the umbilical incision. Re-examination of the appendiceal anam mp and the mesoappendiceal stump revealed no leak or bleeding respectively and after copious irrigati on with sterile saline solution and evacuation of as much of his irrigant as possible, the patient wa s prepared for closure. Following a reported correct sponge and needle count, the ports were removed under direct vision and there was no bleeding noted. The pneumoperitoneum was released and the skin margins all joined with running undyed subcuticular 4-0 Monocryl, Dermabond over that, and the patient was transferred to the recovery in stable condition. TD: 05/29/2019 19:39
[2019-05-30] MEDS: HYDROcod/ACETAM 5/325 MG TABLET PO PRN ×2 (03:41→09:26)
[2019-05-30 07:57] VITALS: BP 105/60
== END 2019-05-30 10:26 | disposition home or self-care (01) ==
LOC: ED 11:33 → SDS 14:47 → MS3 20:05 → SDS 05-30 10:26
PROVIDERS: ATTEND Surgery
PROC: 0DTJ4ZZ Resection of Appendix, Percutaneous Endoscopic Approach (ICD-10-PCS; principal; 2019-05-29 16:30)
DX: K35.30 Acute appendicitis with localized peritonitis, without perforation or gangrene (principal); K80.20 Calculus of gallbladder without cholecystitis without obstruction
CPT/HCPCS: 36415; 44970; 74177; 80053; 81001; 83690; 84703; 85025; 87086; 88304; 96372; 99284; 99285; A9270; J1170; J1650; J7120; Q9967; 81003

== ENCOUNTER 2020-06-19 11:54 | Emergency (ER) | payer OTHER ==
--- NOTE | 2020-06-19 12:14 | ED Physician Documentation ---
PD HPI LOWER EXT INJURY - Stated complaint Stated Complaint: RT FT INJ - Chief complaint Chief Complaint: Ext Problem - History obtained from History obtained from: Patient - History of Present Illness PD HPI LOW EXT INJURY LOCATION: Right, Foot, Toe Type of injury: Blunt / blow (she states she stepped wrong and struck base of great toe on edge. Pain and swelling at the underside of the great toe. No redness nor abrasions.) Where injury occurred: Home Timing - onset: Yesterday Timing - duration: Days (1) Timing - details: Abrupt onset, Still present Improved by: Rest Worsened by: Moving, Palpating Associated symptoms: Swelling. No: Weakness, Numbness, Discolored Similar symptoms before: Has not had sx before Recently seen: Not recently seen Review of Systems Constitutional: denies: Fever, Chills Nose: denies: Rhinorrhea / runny nose, Congestion Throat: denies: Sore throat Respiratory: denies: Cough Skin: denies: Abrasion (s), Laceration (s) PD PAST MEDICAL HISTORY - Past Medical History Past Medical History: No Cardiovascular: None Respiratory: None Neuro: None GI: None : None Musculoskeletal: Chronic back pain - Past Surgical History Past Surgical History: No - Present Medications Home Medications: Ambulatory Orders Medication Instructions Recorded Confirmed Cyclobenzaprine [Flexeril] 10 mg PO TID PRN #20 tablet 12/12/18 Gabapentin 300 mg PO DAILY #20 capsule 12/12/18 - Allergies Allergies/Adverse Reactions: Allergies Allergy/AdvReac Type Severity Reaction Status Date / Time No Known Drug Allergies Allergy Verified 06/19/20 12:06 - Social History Does the pt smoke?: No Smoking Status: Never smoker Does the pt drink ETOH?: No Does the pt have substance abuse?: No - Immunizations Immunizations are current?: Yes - POLST Patient has POLST: No PD ED PE NORMAL - Vitals Vital signs reviewed: Yes - General General: Alert and oriented X 3, No acute distress, Well developed/nourished - Derm Derm: Normal color, Warm and dry, No rash - Extremities Extremities: Other (right great toe with swelling and tenderness plantar aspect MT head area. No redness nor warmth. No skin lesions. ) - Neuro Neuro: No motor deficit, No sensory deficit Results - Vitals Vitals: Vital Signs - 24 hr 06/19/20 06/19/20 12:07 13:55 Temperature 36.5 C 36.8 C Heart Rate 60 70 Respiratory 16 18 Rate Blood Pressure 136/80 H 125/91 H O2 Saturation 97 98 Oxygen O2 Source Room air - Rads (name of study) right foot Radiology: Prelim report reviewed (no fractures), EMP read contemporaneously (one of the sesamoids at the DE head area appears fractured (versus bipartate)), See rad report PD MEDICAL DECISION MAKING - ED course Complexity details: reviewed results (I think her sesamoid appear fractured as opposed to bipartate sesamoid, jo in lieu of being so tender and swollen in the area.), considered differential, d/w patient Departure - Departure Disposition: 01 Home, Self Care Clinical Impression: Toe sprain Qualifiers: Encounter type: initial encounter Qualified Code(s): S93.509A - Unspecified sprain of unspecified toe(s), initial encounter Fracture of sesamoid bone of foot, closed Qualifiers: Encounter type: initial encounter Laterality: right Qualified Code(s): S92.811A - Other fracture of right foot, initial encounter for closed fracture Condition: Stable Record reviewed to determine appropriate education?: Yes Instructions: ED Fx Toe Closed Follow-Up: Sotero Maldonado MD [Provider Admit Priv/Credential] - Fortino Sweeney DPM [Physician No Access] - Comments: The sesamoid bone appears irregular on x-ray. The radiology report says normal. It could be a variation of normal in appearance. Given that this is the area where you are hurting, we will presume a sesamoid fracture. Use the firm soled shoe and crutches as needed for pain improvement. Progress weightbearing as tolerated but use the firm soled shoe for 3 to 4 weeks until fully healed. Progress activity as tolerated. Ibuprofen or naproxen 2-3 times a day and add Tylenol every 4-6 hours if needed. Elevate rest and ice the foot often the next few days to reduce swelling. Follow-up with orthopedics or podiatry if not improved quite well over the next 1 to 2 weeks. Discharge Date/Time: 06/19/20 13:57
[2020-06-19] MEDS ORDERED: HYDROcod/ACETAM 5/325 MG TABLET PO STA (12:40)
--- NOTE | 2020-06-19 13:35 | XRAY Report ---
PROCEDURE: Foot 3 View RT INDICATIONS: foot pain abrupt with twisting yesterday TECHNIQUE: 3 views of the foot were acquired. COMPARISON: None FINDINGS: Bones: No fractures or dislocations. No suspicious bony lesions. Soft tissues: No tibiotalar joint effusion. Achilles tendon appears normal. IMPRESSION: No gross acute right foot fracture or dislocation. Reviewed by: John Trimble MD on 06/19/2020 12:33 PM [facility] Approved by: John Trimble MD on 06/19/2020 12:33 PM [facility] Station ID: [id number]
[2020-06-19 13:55] VITALS: BP 125/91
== END 2020-06-19 13:57 | disposition home or self-care (01) ==
LOC: ED 11:54
DX: S92.811A Other fracture of right foot, initial encounter for closed fracture (principal); S93.509A Unspecified sprain of unspecified toe(s), initial encounter; X50.1XXA Overexertion from prolonged static or awkward postures, initial encounter
CPT/HCPCS: 73630; 99282; 99283; A9270

== ENCOUNTER 2020-08-15 10:18 | Emergency (ER) | payer OTHER ==
--- NOTE | 2020-08-15 10:41 | ED Physician Documentation ---
PD HPI CHEST PAIN - Stated complaint Stated Complaint: CHEST PX,FATIGUE - Chief complaint Chief Complaint: Cardiac - History obtained from History obtained from: Patient - History of Present Illness Timing - onset: Enter time (0), Last night Timing - onset during: Rest Timing - duration: Hours Timing - details: Gradual onset, Still present Quality: Pressure, Pain Location: Substernal, Right chest Improved by: Rest Worsened by: Exertion, Inspiration, Movement, Palpation Associated symptoms: No: Shortness of air, Diaphoresis, Nausea, Vomiting, Feeling faint / dizzy, General Weakness, Palpitations, Cough Similar symptoms before: No diagnosis Recently seen: Not recently seen - Additional information Additional information: Previously well 35-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 Last night when she was getting ready to go to bed she developed some pain in her right substernal chest area she felt this was likely just some sore muscles from the training and she went to bed. She woke this morning with persistence of the pain and some pain on the left side as well and she is concerned about what this represents and is come to the emergency department for evaluation. She denies any current illness. Review of Systems Constitutional: denies: Fever Eyes: denies: Decreased vision Ears: denies: Ear pain Nose: denies: Rhinorrhea / runny nose, Congestion Throat: denies: Sore throat Cardiac: reports: Chest pain / pressure. denies: Palpitations, Pedal edema, Calf pain Respiratory: denies: Dyspnea, Cough, Wheezing GI: denies: Abdominal Pain, Nausea, Vomiting : denies: Dysuria, Frequency Skin: denies: Rash Musculoskeletal: denies: Neck pain, Back pain, Extremity pain Neurologic: denies: Generalized weakness, Focal weakness, Numbness PD PAST MEDICAL HISTORY - Past Medical History Cardiovascular: None Respiratory: None Neuro: None GI: None : None Musculoskeletal: Chronic back pain - Past Surgical History Past Surgical History: No - Present Medications Home Medications: Ambulatory Orders Medication Instructions Recorded Confirmed No Known Home Medications 08/15/20 08/15/20 - Allergies Allergies/Adverse Reactions: Allergies Allergy/AdvReac Type Severity Reaction Status Date / Time No Known Drug Allergies Allergy Verified 08/15/20 10:26 - Social History Does the pt smoke?: No Smoking Status: Never smoker Does the pt drink ETOH?: No Does the pt have substance abuse?: No - Immunizations Immunizations are current?: Yes - POLST Patient has POLST: No PD ED PE NORMAL - Vitals Vital signs reviewed: Yes (hypertensive ) - General General: Alert and oriented X 3, No acute distress, Well developed/nourished - HEENT HEENT: Atraumatic, PERRL, EOMI - Neck Neck: Supple, no meningeal sign, No bony TTP - Cardiac Cardiac: RRR, No murmur - Respiratory Respiratory: No respiratory distress, Clear bilaterally, Other (chest wall point tenderness to the right upper chest wall anteriorly reproduces the symptoms the patient is complaining of. ) - Abdomen Abdomen: Soft, Non tender - Back Back: No CVA TTP, No spinal TTP - Derm Derm: Normal color, Warm and dry, No rash - Extremities Extremities: No deformity, No edema - Neuro Neuro: Alert and oriented X 3, truant officer 2-12 intact, No motor deficit, No sensory deficit, Normal speech Eye Opening: Spontaneous Motor: Obeys Commands Verbal: Oriented GCS Score: 15 - Psych Psych: Normal mood, Normal affect Results - Vitals Vitals: Vital Signs - 24 hr 08/15/20 08/15/20 08/15/20 10:26 10:58 11:28 Temperature 36.9 C Heart Rate 85 65 68 Respiratory 19 19 20 Rate Blood Pressure 150/94 H 109/68 112/63 O2 Saturation 100 100 99 Oxygen O2 Source Room air - EKG (time done) 1028 Rate: Rate (enter#) (74) Rhythm: NSR QRS: Low voltage Ischemia: Normal ST segments Compare to prior EKG: Old EKG unavailable Computer interpretation: Agree with computer - Labs Labs: Laboratory Tests 08/15/20 08/15/20 08/15/20 10:50 11:15 11:15 WBC 6.8 RBC 4.48 Hgb 13.5 Hct 40.8 MCV 91.1 MCH 30.1 MCHC 33.1 RDW 12.7 Plt Count 240 MPV 10.2 Neut # (Auto) 3.8 Lymph # (Auto) 2.2 [place] # (Auto) 0.5 Eos # (Auto) 0.2 Baso # (Auto) 0.0 Absolute Nucleated RBC 0.00 Nucleated RBC % 0.0 Sodium 140 Potassium 3.8 Chloride 104 Carbon Dioxide 22 Anion Gap 14.0 H BUN 11 Creatinine 0.5 Estimated GFR (MDRD) 140 Glucose 121 H Calcium 9.0 Total Bilirubin 0.5 AST 18 ALT 28 Alkaline Phosphatase 55 Troponin I High Sens < 2.3 L Total Protein 7.1 Albumin 4.2 Globulin 2.9 Albumin/Globulin Ratio 1.4 Lipase 24 - Rads (name of study) chest Radiology: Prelim report reviewed (Impression: No evidence of acute cardiopulmonary abnormality.), EMP read indepedently, See rad report PD MEDICAL DECISION MAKING - ED course Complexity details: reviewed old records, reviewed results, re-evaluated patient, considered differential, d/w patient ED course: 35-year-old female with right-sided chest wall pain has a negative work-up otherwise and she has improvement with use of dexamethasone and Toradol. She is capable of taking ibuprofen and has this at home and it does not seem to bother her stomach. She will use this for pain control as needed and expect symptoms to resolve in 2 to 5 days. Departure - Departure Disposition: 01 Home, Self Care Clinical Impression: Chest wall pain Condition: Stable Instructions: ED Strain Chest Wall Follow-Up: JOZEF Mares [Provider Group]
[2020-08-15] MEDS ORDERED: KETOROLAC 60 MG/2 ML VIAL IM STA (10:48)
[2020-08-15] MEDS ORDERED: CHERRY SYRUP 10 ML UDC PO ONE (10:48)
[2020-08-15] MEDS ORDERED: DEXAMETHASONE 10 MG/ML VIAL PO STA (10:48)
--- NOTE | 2020-08-15 10:55 | XRAY Report ---
PROCEDURE: Chest 1 View X-Ray INDICATIONS: Chest pain TECHNIQUE: One view of the chest was acquired. COMPARISON: None FINDINGS: Overlying EKG wires. Surgical changes and devices: None. Lungs and pleura: No pleural effusions or pneumothorax. Lungs are clear. Mediastinum: Mediastinal contours appear normal. Heart size is normal. Bones and chest wall: No suspicious bony lesions. Overlying soft tissues appear unremarkable. IMPRESSION: No evidence of an acute cardiopulmonary abnormality. Reviewed by: Ziyad Archer DO on 08/15/2020 9:54 AM [facility] Approved by: Ziyad Archer DO on 08/15/2020 9:54 AM [facility] Station ID: [id number]
[2020-08-15 11:20] LABS: BASOPHILS % (AUTO) 0.4 %; EOSINOPHILS # (AUTO) 0.2 10^3/uL (0.0-0.7); EOSINOPHILS % (AUTO) 3.4 %; HCT - HEMATOCRIT 40.8 % (37.0-47.0); HGB - HEMOGLOBIN 13.5 g/dL (12.0-16.0); LYMPHOCYTES # (AUTO) 2.2 10^3/uL (1.5-3.5); LYMPHOCYTES % (AUTO) 32.7 %; MEAN CORPUSCULAR HEMOGLOBIN 30.1 pg (27.0-31.0); MEAN CORPUSCULAR HGB CONC 33.1 g/dL (32.0-36.0); MEAN CORPUSCULAR VOLUME 91.1 fL (81.0-99.0); MEAN PLATELET VOLUME 10.2 fL (7.9-10.8); MONOCYTES # (AUTO) 0.5 10^3/uL (0.0-1.0); MONOCYTES % (AUTO) 7.8 %; NEUTROPHILS # (AUTO) 3.8 10^3/uL (1.5-6.6); NEUTROPHILS % (AUTO) 55.4 %; PLT - PLATELET COUNT 240 10^3/uL (130-450); RED BLOOD COUNT 4.48 10^6/uL (4.20-5.40); RED CELL DISTRIBUTION WIDTH 12.7 % (12.0-15.0); WHITE BLOOD COUNT 6.8 x10^3/uL (4.8-10.8)
[2020-08-15 11:38] LABS: ALBUMIN 4.2 g/dL (3.2-5.5); ALBUMIN/GLOBULIN RATIO 1.4 (1.0-2.2); BILIRUBIN,TOTAL 0.5 mg/dL (0.2-1.0); CREATININE 0.5 mg/dL (0.4-1.0); POTASSIUM 3.8 mmol/L (3.5-5.0); TOTAL PROTEIN 7.1 g/dL (6.7-8.2)
[2020-08-15 12:01] VITALS: BP 120/80
== END 2020-08-15 12:01 | disposition home or self-care (01) ==
LOC: ED 10:18
DX: R07.89 Other chest pain (principal)
CPT/HCPCS: 36415; 71045; 80053; 83690; 84484; 85025; 93005; 96372; 99284; A9270

== ENCOUNTER 2021-02-19 13:30 | Emergency (ER) | payer OTHER ==
--- NOTE | 2021-02-19 14:25 | ED Physician Documentation ---
PD HPI URI - Stated complaint Stated Complaint: SOA - Chief complaint Chief Complaint: Heent - History obtained from History obtained from: Patient, Family - History of Present Illness Timing - onset: How many days ago (4) Timing duration: Days (4) Timing details: Gradual onset, Still present Associated symptoms: Ear pain, Sore throat, Dry cough, Dyspnea Contributing factors: Sick contact Improves by: Rest, Medication Similar symptoms before: Diagnosis (OM and OE) Recently seen: Clinic - Additional information Additional information: 35-year-old female who has not been immunized against Covid has developed left ear pain after being in a water park and she went to her primary and at some drops for her ears and she had persistence of pain symptoms she was eventually prescribed amoxicillin. She has taken a days worth of this. She is having some shortness of breath and feels poorly. Review of Systems Constitutional: reports: Fever, Myalgias, Fatigue Eyes: denies: Decreased vision Ears: reports: Loss of hearing, Ear pain Nose: reports: Congestion Throat: reports: Sore throat Cardiac: denies: Chest pain / pressure, Palpitations Respiratory: reports: Dyspnea, Cough, Wheezing GI: denies: Abdominal Pain, Nausea, Vomiting : denies: Dysuria, Frequency, Discharge Skin: denies: Rash Musculoskeletal: denies: Neck pain, Back pain, Extremity pain PD PAST MEDICAL HISTORY - Past Medical History Past Medical History: Yes Cardiovascular: None Respiratory: None Neuro: None GI: None : None Musculoskeletal: Chronic back pain - Past Surgical History Past Surgical History: Yes General: Appendectomy - Present Medications Home Medications: Ambulatory Orders Medication Instructions Recorded Confirmed Albuterol 2.5 mg .ROUTE PRN PRN 02/19/21 02/19/21 Amoxicillin 500 mg PO QID 02/19/21 02/19/21 - Allergies Allergies/Adverse Reactions: Allergies Allergy/AdvReac Type Severity Reaction Status Date / Time No Known Drug Allergies Allergy Verified 02/19/21 13:45 - Social History Does the pt smoke?: No Smoking Status: Never smoker Does the pt drink ETOH?: Yes Does the pt have substance abuse?: No - Immunizations Immunizations are current?: Yes - POLST Patient has POLST: No PD ED PE NORMAL - Vitals Vital signs reviewed: Yes (normal ) - General General: Alert and oriented X 3, Well developed/nourished, Other (laying in position ) - HEENT HEENT: Atraumatic, PERRL, EOMI, Ears normal, Moist mucous membranes, Pharynx benign, Dentition benign - Neck Neck: Supple, no meningeal sign, No bony TTP - Cardiac Cardiac: RRR, No murmur - Respiratory Respiratory: No respiratory distress, Other (bibasilar rhonchi) - Abdomen Abdomen: Normal bowel sounds, Soft, Non tender - Back Back: No CVA TTP, No spinal TTP - Derm Derm: Normal color, Warm and dry, No rash - Extremities Extremities: No deformity, No edema - Neuro Neuro: Alert and oriented X 3, pediatric ophthalmologist 2-12 intact, No motor deficit, No sensory deficit, Normal speech Eye Opening: Spontaneous Motor: Obeys Commands Verbal: Oriented GCS Score: 15 - Psych Psych: Normal mood, Normal affect Results - Vitals Vitals: Vital Signs - 24 hr 02/19/21 02/19/21 02/19/21 13:40 14:48 16:55 Temperature 36.6 C 37.2 C 37.7 C Heart Rate 99 88 96 Respiratory 16 18 20 Rate Blood Pressure 118/69 128/70 128/86 H O2 Saturation 97 96 98 02/19/21 17:16 Temperature Heart Rate 97 Respiratory 19 Rate Blood Pressure 130/79 O2 Saturation 98 Oxygen O2 Source Room air - Labs Labs: Laboratory Tests 02/19/21 14:40 Nasal Adenovirus (PCR) NOT DETECTED Nasal B. parapertussis DNA (PCR) NOT DETECTED Nasal Coronavir 229E PCR NOT DETECTED Nasal Coronavir HKU1 PCR NOT DETECTED Nasal Coronavir NL63 PCR NOT DETECTED Nasal Coronavir OC43 PCR NOT DETECTED Nasal Enterovir/Rhinovir PCR NOT DETECTED Nasal Influenza B PCR NOT DETECTED Nasal Influenza A PCR NOT DETECTED Nasal Parainfluen 1 PCR NOT DETECTED Nasal Parainfluen 2 PCR NOT DETECTED Nasal Parainfluen 3 PCR NOT DETECTED Nasal Parainfluen 4 PCR NOT DETECTED Nasal RSV (PCR) NOT DETECTED Nasal B.pertussis DNA PCR NOT DETECTED Nasal C.pneumoniae (PCR) NOT DETECTED Jozef Human Metapneumo PCR NOT DETECTED Nasal M.pneumoniae (PCR) NOT DETECTED Nasal SARS-CoV-2 (PCR) DETECTED A - Rads (name of study) chest Radiology: Prelim report reviewed (Impression: Patchy bilateral lung opacities suspicious for multi lobar pneumonia.), EMP read indepedently, See rad report PD MEDICAL DECISION MAKING - ED course Complexity details: reviewed results, re-evaluated patient, considered differential, d/w patient ED course: 35-year-old female presents to the emergency department with ear pain and a cough and she has rhonchi on examination of the chest x-ray is concerning for multi lobar pneumonia and she is Covid positive. She is unimmunized and she is accepting of monoclonal antibody therapy. She is administered IM rocephin as well prior to the + COVID. Departure - Departure Disposition: 01 Home, Self Care Clinical Impression: COVID-19 Condition: Stable Instructions: COVID-19 [facility], Flu and Cold: Nutrition, Prevention and Treatment Tips Follow-Up: JOZEF Mares [Provider Group]
--- NOTE | 2021-02-19 14:41 | XRAY Report ---
PROCEDURE: Chest 1 View X-Ray INDICATIONS: bibasilar rhonchi TECHNIQUE: One view of the chest was acquired. COMPARISON: 08/15/2020. FINDINGS: Surgical changes and devices: None. Lungs and pleura: No pleural effusions or pneumothorax. Patchy opacities noted in the lungs bilatera lly suspicious for multilobar pneumonia. Mediastinum: Mediastinal contours appear normal. Heart size is normal. Bones and chest wall: No suspicious bony lesions. Overlying soft tissues appear unremarkable. IMPRESSION: Patchy bilateral lung opacities suspicious for multilobar pneumonia. Reviewed by: Angella Burleson MD, PhD on 02/19/2021 2:40 PM PDT Approved by: Angella Burleson MD, PhD on 02/19/2021 2:40 PM PDT Station ID: [id number]
[2021-02-19] MEDS ORDERED: LIDOCAINE 1% 2 ML VIAL MC ONE (15:25)
[2021-02-19] MEDS ORDERED: cefTRIAXone 1 GM VIAL IM STA (15:25)
[2021-02-19 15:37] LABS: CORONAVIRUS 229E-RESP PCR NOT DETECTED; CORONAVIRUS HKU1-RESP PCR NOT DETECTED; CORONAVIRUS NL63-RESP PCR NOT DETECTED; CORONAVIRUS OC43-RESP PCR NOT DETECTED
[2021-02-19 15:38] LABS: B. PARAPERTUSSIS- RESP PCR PAN NOT DETECTED; B. PERTUSSIS- RESP PCR PANEL NOT DETECTED; C. PNEUMONIAE- RESP PCR PANEL NOT DETECTED; HUMAN METAPNEUMOVIRUS NOT DETECTED; INFLUENZA A- RESP PCR PANEL NOT DETECTED; INFLUENZA B - RESP PCR PANEL NOT DETECTED; PARAINFLUENZA VIRUS 1 NOT DETECTED; PARAINFLUENZA VIRUS 2 NOT DETECTED; PARAINFLUENZA VIRUS 3 NOT DETECTED; PARAINFLUENZA VIRUS 4 NOT DETECTED; RHINOVIRUS/ENTEROVIRUS NOT DETECTED; RSV- RESP PCR PANEL NOT DETECTED; SARS-CoV-2 -RESP PCR PANEL DETECTED
[2021-02-19 15:39] LABS: M. PNEUMONIAE- RESP PCR PANEL NOT DETECTED
[2021-02-19] MEDS ORDERED: CASIRIVIMAB/IMDEVIMAB 10 ML in SODIUM CHLORIDE 0.9% 50 ML IV ONE (16:30)
[2021-02-19] MEDS ORDERED: ACETAMINOPHEN 325 MG TABLET PO STA (16:56)
[2021-02-19 18:17] VITALS: BP 121/75
== END 2021-02-19 18:21 | disposition home or self-care (01) ==
LOC: ED 13:30
DX: U07.1 COVID-19 (principal)
CPT/HCPCS: 0202U; 71045; 96372; 99284; A9270; J7040; M0243; Q0244

== ENCOUNTER 2021-02-22 13:13 | Emergency (ER) | payer OTHER ==
[2021-02-22] MEDS ORDERED: SODIUM CHLORIDE 0.9% 1,000 ML IV STA (14:21)
[2021-02-22] MEDS ORDERED: DEXAMETHASONE 10 MG/ML VIAL IVP STA (14:21)
--- NOTE | 2021-02-22 14:50 | ED Physician Documentation ---
History of Present Illness - Stated complaint Stated Complaint: C+ NAUSEA/WEAKNESS - Chief complaint Chief Complaint: Resp - History obtained from History obtained from: Patient - History of Present Illness Timing: How many days ago (4) - Additonal information Additional information: 35-year-old female has been sick with Covid was diagnosed here in the emergency department 4 days ago and she is now complaining of increased fatigue Review of Systems Constitutional: reports: Fever, Chills, Myalgias, Fatigue Eyes: denies: Decreased vision Ears: denies: Ear pain Nose: reports: Congestion. denies: Rhinorrhea / runny nose Throat: denies: Sore throat Cardiac: denies: Chest pain / pressure, Palpitations Respiratory: reports: Dyspnea, Cough, Wheezing GI: reports: Nausea. denies: Abdominal Pain, Vomiting : denies: Dysuria, Frequency PD PAST MEDICAL HISTORY - Past Medical History Cardiovascular: None Respiratory: None Neuro: None GI: None : None Musculoskeletal: Chronic back pain - Past Surgical History Past Surgical History: Yes General: Appendectomy - Present Medications Home Medications: Ambulatory Orders Medication Instructions Recorded Confirmed Albuterol 2.5 mg .ROUTE PRN PRN 02/19/21 02/22/21 Azithromycin [Zithromax] 250 mg PO DAILY #6 tablet 02/22/21 - Allergies Allergies/Adverse Reactions: Allergies Allergy/AdvReac Type Severity Reaction Status Date / Time No Known Drug Allergies Allergy Verified 02/22/21 13:29 - Social History Does the pt smoke?: No Smoking Status: Never smoker Does the pt drink ETOH?: Yes Does the pt have substance abuse?: No - Immunizations Immunizations are current?: Yes - POLST Patient has POLST: No PD ED PE NORMAL - Vitals Vital signs reviewed: Yes (hypertensive not hypoxic) - General General: Alert and oriented X 3, Well developed/nourished, Other (moves slowly and appears misserable ) - HEENT HEENT: Atraumatic, PERRL, EOMI - Neck Neck: Supple, no meningeal sign, No bony TTP - Cardiac Cardiac: RRR, No murmur - Respiratory Respiratory: No respiratory distress, Other (rhonchi to both mid lung gonzalez) - Abdomen Abdomen: Soft, Non tender - Back Back: No CVA TTP, No spinal TTP - Derm Derm: Normal color, Warm and dry, No rash - Extremities Extremities: No deformity, No edema - Neuro Neuro: Alert and oriented X 3, gel coater 2-12 intact, No motor deficit, No sensory deficit, Normal speech Eye Opening: Spontaneous Motor: Obeys Commands Verbal: Oriented GCS Score: 15 - Psych Psych: Normal mood, Normal affect Results - Vitals Vitals: Vital Signs - 24 hr 02/22/21 13:23 Temperature 36.9 C Heart Rate 67 Respiratory 17 Rate Blood Pressure 137/89 H O2 Saturation 96 Oxygen O2 Source Room air - Rads (name of study) chest Radiology: Prelim report reviewed (Impression: Mild improved aeration of both lungs since prior study. No new focal consolidation.), EMP read indepedently, See rad report PD MEDICAL DECISION MAKING - ED course Complexity details: reviewed old records, reviewed results, re-evaluated patient, considered differential, d/w patient ED course: 35-year-old female with COVID-19 returns to the emergency department feeling exceptionally fatigued and weak. She is administered intravenous saline and dexamethasone. We will place her on a course of a azithromycin to treat atypical pneumonia. She is counseled that this may take several weeks to improve and that she will be quite ill. Departure - Departure Disposition: 01 Home, Self Care Clinical Impression: COVID-19 Condition: Stable Instructions: ED Viral Syndrome, COVID-19 [facility], Flu and Cold: Nutrition, Prevention and Treatment Tips Follow-Up: JOZEF Mares [Provider Group] Prescriptions: Azithromycin [Zithromax] 250 mg PO DAILY #6 tablet
--- NOTE | 2021-02-22 14:55 | XRAY Report ---
PROCEDURE: Chest 1 View X-Ray INDICATIONS: covid TECHNIQUE: One view of the chest was acquired. COMPARISON: 02/19/2021 FINDINGS: Surgical changes and devices: None. Lungs and pleura: No pleural effusions or pneumothorax. There is improvement in bilateral perihila r patchy consolidative opacities since 02/19/2021. No definite new focal consolidation is seen. Mediastinum: Mediastinal contours appear normal. Heart size is normal. Bones and chest wall: No suspicious bony lesions. Overlying soft tissues appear unremarkable. IMPRESSION: Mildly improved aeration of both lungs since the prior study. No new focal consolidation Reviewed by: Andrea Jacques MD on 02/22/2021 2:54 PM PDT Approved by: Andrea Jacques MD on 02/22/2021 2:54 PM PDT Station ID: [id number]
[2021-02-22 17:06] VITALS: BP 124/70
== END 2021-02-22 17:06 | disposition home or self-care (01) ==
LOC: ED 13:13
DX: U07.1 COVID-19 (principal)
CPT/HCPCS: 36415; 80053; 83690; 85025; 87040; 96374; 99283

== ENCOUNTER 2021-11-10 10:55 | Emergency (ER) | payer OTHER ==
[2021-11-10 11:25] LABS: BASOPHILS # (AUTO) 0.1 10^3/uL (0.0-0.1); BASOPHILS % (AUTO) 0.7 %; EOSINOPHILS # (AUTO) 0.3 10^3/uL (0.0-0.7); EOSINOPHILS % (AUTO) 3.7 %; HCT - HEMATOCRIT 43.1 % (37.0-47.0); HGB - HEMOGLOBIN 14.8 g/dL (12.0-16.0); LYMPHOCYTES # (AUTO) 2.7 10^3/uL (1.5-3.5); LYMPHOCYTES % (AUTO) 31.3 %; MEAN CORPUSCULAR HEMOGLOBIN 30.1 pg (27.0-31.0); MEAN CORPUSCULAR HGB CONC 34.3 g/dL (32.0-36.0); MEAN CORPUSCULAR VOLUME 87.6 fL (81.0-99.0); MEAN PLATELET VOLUME 10.4 fL (7.9-10.8); MONOCYTES # (AUTO) 0.6 10^3/uL (0.0-1.0); MONOCYTES % (AUTO) 7.4 %; NEUTROPHILS # (AUTO) 4.8 10^3/uL (1.5-6.6); NEUTROPHILS % (AUTO) 56.7 %; PLT - PLATELET COUNT 273 10^3/uL (130-450); RED BLOOD COUNT 4.92 10^6/uL (4.20-5.40); RED CELL DISTRIBUTION WIDTH 12.9 % (12.0-15.0); WHITE BLOOD COUNT 8.5 x10^3/uL (4.8-10.8)
[2021-11-10 11:37] LABS: ALBUMIN 4.4 g/dL (3.2-5.5); ALBUMIN/GLOBULIN RATIO 1.2 (1.0-2.2); BILIRUBIN,TOTAL 0.8 mg/dL (0.2-1.0); CALCIUM 9.1 mg/dL (8.5-10.3); CREATININE 0.5 mg/dL (0.4-1.0); POTASSIUM 3.5 mmol/L (3.5-5.0)
--- NOTE | 2021-11-10 11:40 | XRAY Report ---
PROCEDURE: Chest 1 View X-Ray INDICATIONS: Chest pain TECHNIQUE: One view of the chest was acquired. COMPARISON: 02/22/2021. FINDINGS: Surgical changes and devices: None. Lungs and pleura: No pleural effusions or pneumothorax. Lungs are clear. Mediastinum: Mediastinal contours appear normal. Heart size is normal. Bones and chest wall: No suspicious bony lesions. Overlying soft tissues appear unremarkable. IMPRESSION: No acute cardiopulmonary disease process. Reviewed by: Angella Burleson MD, PhD on 11/10/2021 11:39 AM PDT Approved by: Angella Burleson MD, PhD on 11/10/2021 11:39 AM PDT Station ID: [id number]
[2021-11-10] MEDS ORDERED: KETOROLAC 60 MG/2 ML VIAL IM STA (12:23)
--- NOTE | 2021-11-10 12:26 | ED Physician Documentation ---
PD HPI CHEST PAIN - Stated complaint Stated Complaint: cp,left side px - Chief complaint Chief Complaint: Cardiac - History obtained from History obtained from: Patient, Family - History of Present Illness Timing - onset: How many hours ago (10) Timing - onset during: Rest Timing - duration: Hours (10) Timing - details: Gradual onset Pain level max: 6 Pain level now: 4 Quality: Aching, Pain Location: Left chest Radiation: Left upper extremity Improved by: Rest Worsened by: Movement, Palpation Associated symptoms: No: Shortness of air, Diaphoresis, Nausea, Vomiting, Feeling faint / dizzy, General Weakness, Palpitations, Cough Recently seen: Not recently seen - Additional information Additional information: 36-year-old female states that she has been doing some heavy lifting lately and is having left upper chest and left axilla pain. She also feels like her left arm is "fatigued". Worse with movement, better with rest. No cardiac history. Patient denies any possibility of . She is not breast-feeding. Does not smoke, drink, vape or use any drugs. No recent illnesses. Review of Systems Constitutional: denies: Fever, Chills Cardiac: denies: Palpitations Respiratory: denies: Dyspnea, Cough, Hemoptysis, Wheezing GI: denies: Vomiting, Diarrhea Skin: denies: Rash Musculoskeletal: denies: Neck pain, Back pain Neurologic: denies: Headache PD PAST MEDICAL HISTORY - Past Medical History Cardiovascular: None Respiratory: None Neuro: None GI: None : None Musculoskeletal: Chronic back pain - Past Surgical History Past Surgical History: Yes General: Appendectomy - Present Medications Home Medications: Ambulatory Orders Medication Instructions Recorded Confirmed Albuterol 2.5 mg .ROUTE PRN PRN 02/19/21 11/10/21 - Allergies Allergies/Adverse Reactions: Allergies Allergy/AdvReac Type Severity Reaction Status Date / Time No Known Drug Allergies Allergy Verified 11/10/21 12:01 - Social History Does the pt smoke?: No Smoking Status: Never smoker Does the pt drink ETOH?: Yes Does the pt have substance abuse?: No - Immunizations Immunizations are current?: Yes - POLST Patient has POLST: No PD ED PE NORMAL - Vitals Vital signs reviewed: Yes - General General: Alert and oriented X 3, No acute distress - HEENT HEENT: Moist mucous membranes - Neck Neck: Supple, no meningeal sign - Cardiac Cardiac: RRR - Respiratory Respiratory: No respiratory distress, Clear bilaterally - Abdomen Abdomen: Soft, Non tender, Non distended - Derm Derm: Warm and dry - Extremities Extremities: No edema, No calf tenderness / cord - Neuro Neuro: Alert and oriented X 3 - Free text exam Free text exam: Tender to palpation over the left anterior chest wall. Reproduces her pain. She is also tender in the left axilla. No lymphadenopathy. No skin changes. No crepitus or ecchymosis Results - Vitals Vitals: Vital Signs - 24 hr 11/10/21 11/10/21 10:59 12:00 Temperature 36.8 C Heart Rate 56 L 62 Respiratory 16 14 Rate Blood Pressure 144/87 H 128/84 H O2 Saturation 99 99 Oxygen O2 Source Room air - EKG (time done) 1106 Rate: Rate (enter#) (55) Rhythm: NSR [place]: Normal Intervals: Normal NC QRS: Normal Ischemia: Normal ST segments - Labs Labs: Laboratory Tests 11/10/21 11/10/21 11/10/21 11:19 11:19 11:19 WBC 8.5 RBC 4.92 Hgb 14.8 Hct 43.1 MCV 87.6 MCH 30.1 MCHC 34.3 RDW 12.9 Plt Count 273 MPV 10.4 Neut # (Auto) 4.8 Lymph # (Auto) 2.7 [place] # (Auto) 0.6 Eos # (Auto) 0.3 Baso # (Auto) 0.1 Absolute Nucleated RBC 0.00 Nucleated RBC % 0.0 Sodium 143 Potassium 3.5 Chloride 107 Carbon Dioxide 24 Anion Gap 12.0 BUN 11 Creatinine 0.5 Estimated GFR (MDRD) 140 Glucose 103 H Calcium 9.1 Total Bilirubin 0.8 AST 22 ALT 32 Alkaline Phosphatase 57 Troponin I High Sens < 2.3 L Total Protein 8.0 Albumin 4.4 Globulin 3.6 Albumin/Globulin Ratio 1.2 Lipase 31 - Rads (name of study) cxr Radiology: Final report received, EMP read contemporaneously, See rad report (no acute abnormality) PD MEDICAL DECISION MAKING - ED course Complexity details: reviewed results, re-evaluated patient, considered differential (No ST elevation ND, no aortic dissection, no PE, no tension pneumothorax, no aortic aneurysm), d/w patient ED course: 36-year-old female with what appears to be musculoskeletal chest pain. No acute findings on EKG, laboratory testing or chest x-ray. Pain is reproducible with palpation and movement. Given Toradol. We will have her utilize Motrin and Tylenol as needed for pain at home. Patient counseled regarding signs and symptoms for which I believe and urgent re-evaluation would be necessary. Patient with good understanding of and agreement to plan and is comfortable going home at this time This document was made in part using voice recognition software. While efforts are made to proofread this document, sound alike and grammatical errors may occur. Departure - Departure Disposition: Home, Self Care Clinical Impression: Chest wall pain Condition: Good Instructions: ED Chest Pain NonCardiac Follow-Up: AHSAN PEGUERO ARNP [Primary Care Provider] - Within 1 week Comments: Your x-ray, EKG and laboratory testing did not show any acute abnormalities today. Please follow-up with your doctor for further care. I would recommend Motrin and/or Tylenol as needed for pain. He can continue gentle stretching as well. Heating pads may help as well. Discharge Date/Time: 11/10/21 12:41
[2021-11-10 12:35] VITALS: BP 128/84
== END 2021-11-10 12:41 | disposition home or self-care (01) ==
LOC: ED 10:55
DX: R07.89 Other chest pain (principal)
CPT/HCPCS: 36415; 80053; 83690; 84484; 85025; 93005; 96372; 99284

== ENCOUNTER 2022-03-21 09:05 | Outpatient (CLI) | payer OTHER ==
--- NOTE | 2022-03-21 11:52 | MRI Report ---
PROCEDURE: Lumbar Spine W/O INDICATIONS: LOW BACK PAIN TECHNIQUE: Noncontrast sagittal T1 spin echo and T2 fast echo, sagittal STIR, axial T1 and T2 fast spin echo thr ough the lumbar spine. In cases with scoliosis, additional coronal T2 fast spin echo may be performe d. COMPARISON: None. FINDINGS: Image quality: Excellent. Alignment and Curvature: No spondylolisthesis. Bone Marrow: Possible L1 small hemangioma. Spinal Cord: Conus terminates at L1. Normal appearance of the cauda equina nerve roots. Paraspinous Soft Tissues: No paravertebral masses. T12-L1: Normal in appearance. L1-L2: Normal in appearance. L2-L3: Moderate central protrusion with fissure. Small diffuse bulge. Mild facet arthropathy with trace fluid. Mild right neural foraminal narrowing. L3-L4: Small annular fissure. Mild bilateral facet arthropathy. L4-L5: Small to moderate size central protrusion that projects inferiorly. Bilateral facet arthropa thy. Small superimposed bulge. Trace bilateral neural foraminal narrowing. L5-S1: Ximta-yx-ennuhjcy size central extrusion with a fissure. Bilateral facet arthropathy. Small superimposed disc bulge. Mild left and minimal right neural foraminal narrowing. IMPRESSION: Multiple levels of disc protrusions/extrusions with fissuring as above. By imaging, no high-grade stenosis in the path of the nerve roots. Reviewed by: Rachid Lee MD on 03/21/2022 11:51 AM PDT Approved by: Rachid Lee MD on 03/21/2022 11:51 AM PDT Station ID: [id number]
== END 2022-03-21 09:06 | disposition home or self-care (01) ==
LOC: DI 09:05
PROVIDERS: ATTEND Nurse Practitioner Family
DX: M51.26 Other intervertebral disc displacement, lumbar region (principal); M47.816 Spondylosis without myelopathy or radiculopathy, lumbar region; M48.061 Spinal stenosis, lumbar region without neurogenic claudication; M51.36 Other intervertebral disc degeneration, lumbar region

== ENCOUNTER 2023-08-01 08:43 | Emergency (ER) | payer OTHER ==
[2023-08-01 08:51] VITALS: BP 134/83; O2SAT 99
--- NOTE | 2023-08-01 08:54 | ED Physician Documentation ---
PD HPI LOWER EXT INJURY - Stated complaint Stated Complaint: LT ANKLE INJ - Chief complaint Chief Complaint: Ext Problem - History obtained from History obtained from: Patient - History of Present Illness PD HPI LOW EXT INJURY LOCATION: Left, Ankle Type of injury: Twist (mild twist but mainly stepped down from truck and felt onset of sharp pain in ankle with a feeling of a snap. No pain in calf. Not painful in achiless and can push downward with foot. Having marked pain with walking/weight bearing. Hopping or using as crutch.) Timing - onset: Yesterday Timing - details: Abrupt onset, Still present Worsened by: Moving, Other (weight bearing mostly is what hurts.) Associated symptoms: Swelling. No: Weakness, Numbness, Discolored Similar symptoms before: Has not had sx before Review of Systems Neurologic: denies: Focal weakness, Numbness PD PAST MEDICAL HISTORY - Past Medical History Past Medical History: Yes Cardiovascular: None Respiratory: None Neuro: None GI: None : None Musculoskeletal: Chronic back pain - Past Surgical History Past Surgical History: Yes General: Appendectomy - Present Medications Home Medications: Ambulatory Orders Medication Instructions Recorded Confirmed Albuterol 2.5 mg .ROUTE PRN PRN 02/19/21 11/10/21 - Allergies Allergies/Adverse Reactions: Allergies Allergy/AdvReac Type Severity Reaction Status Date / Time No Known Drug Allergies Allergy Verified 08/01/23 08:50 - Social History Does the pt smoke?: No Smoking Status: Never smoker Does the pt drink ETOH?: Yes Does the pt have substance abuse?: No - Immunizations Immunizations are current?: Yes - POLST Patient has POLST: No PD ED PE NORMAL - Vitals Vital signs reviewed: Yes - General General: Alert and oriented X 3, No acute distress, Well developed/nourished - Derm Derm: Normal color, Warm and dry - Extremities Extremities: Other (left ankle tender with some swelling anterolateral ankle. Not tneder at achilles and it is firm/intact. Medially not tender. No tenderness proximal lower leg nor at MTs area. Pain with inversions tress but not gross laxity. ) - Neuro Neuro: No motor deficit, No sensory deficit Results - Vitals Vitals: Oxygen O2 Source Room air - Rads (name of study) left ankle Relevant Findings:: Prelim report reviewed (no noted fractures. Possible small bone avulsion medially. correlate clinically. ), EMP independent interpretation of test (no fractures) PD Medical Decision Making - ED course Complexity details: reviewed results (no noted fractures (small medial possibl avulsion per Rad but not clinically tneder in that area). She has high degree of pain with weight baring. Consider ligamentous tear or possible talar dome impaction, given mecahnism. Instructed to follow up if not improving in ready timeframe. Consider MRI.), considered differential, d/w patient Departure - Departure Disposition: Home, Self Care Clinical Impression: Left ankle sprain Condition: Stable Record reviewed to determine appropriate education?: Yes Instructions: ED Sprain Ankle Follow-Up: AHSAN PEGUERO ARNP [Primary Care Provider] - [facility] [Provider Group] Comments: Your x-ray does not show any obvious fractures. There is still soft tissue structures throughout the ankle to be injured such as ligaments and muscles. Presume a sprain of the ankle. These can still take up to several weeks for healing. Hopefully this will improve in the short-term. Use the ankle brace when up and around for the next 2 to 3 weeks or until fully resolved and feeling sturdy. Crutches initially for the pain of weightbearing and progress weight bearing and use as tolerated. Anti-inflammatory such as ibuprofen 2 or 3 times a day. Ice elevate and rest the ankle often today. Recheck if not improving well over the next week or so and fully resolved by 1 to 3 weeks. Forms: PCP List Discharge Date/Time: 08/01/23 09:52
[2023-08-01] MEDS ORDERED: IBUPROFEN 800 MG TABLET PO STA (09:14)
--- NOTE | 2023-08-01 09:23 | XRAY Report ---
PROCEDURE: Ankle 3+V LT INDICATIONS: Trauma TECHNIQUE: 3 views of the ankle were acquired. COMPARISON: None. FINDINGS: Bones: A tiny bone chip is seen on frontal view adjacent and medial malleolus. No displaced fracture otherwise. The ankle mortise appears intact. Soft tissues: Soft tissue swelling is present. IMPRESSION: No displaced fracture. Tiny age-indeterminate bone chip is seen on frontal view adjacent to the medial malleolus. There is soft tissue swelling. If there is high concern for further derangement such as ligamentous/soft tissue injury, consider MRI evaluation. Reviewed by: Rachid Lee MD on 08/01/2023 9:21 AM PST Approved by: Rachid Lee MD on 08/01/2023 9:21 AM PST Station ID: [id number]
== END 2023-08-01 09:52 | disposition home or self-care (01) ==
LOC: ED 08:43
DX: S93.402A Sprain of unspecified ligament of left ankle, initial encounter (principal); X50.1XXA Overexertion from prolonged static or awkward postures, initial encounter
CPT/HCPCS: 73610; 99283; A9270

== ENCOUNTER 2023-11-06 08:36 | Emergency (ER) | payer OTHER ==
[2023-11-06 09:10] VITALS: O2SAT 98
--- NOTE | 2023-11-06 09:32 | ED Physician Documentation ---
PD HPI FEMALE - Stated complaint Stated Complaint: - Chief complaint Chief Complaint: UTI - Additional information Additional information: 38-year-old female with prior UTIs presenting with UTI symptoms for the past 4 days. She is beginning to have some low back pain and is concerned this might be coming a kidney infection. No fevers no chills occasional nausea. Reports dysuria and frequency. Tried Azo and [id number] meds not getting any better. Review of Systems Constitutional: denies: Fever GI: denies: Vomiting PD PAST MEDICAL HISTORY - Past Medical History Cardiovascular: None Respiratory: None Neuro: None GI: None : None Musculoskeletal: Chronic back pain - Past Surgical History Past Surgical History: Yes General: Appendectomy - Present Medications Home Medications: Ambulatory Orders Medication Instructions Recorded Confirmed Albuterol 2.5 mg .ROUTE PRN PRN 02/19/21 11/10/21 Ondansetron Odt [Zofran] 4 mg TL Q6H PRN #10 tablet 11/06/23 cephALEXin [Keflex] 500 mg PO Q6H #28 cap 11/06/23 - Allergies Allergies/Adverse Reactions: Allergies Allergy/AdvReac Type Severity Reaction Status Date / Time No Known Drug Allergies Allergy Verified 08/01/23 08:50 - Social History Does the pt smoke?: No Smoking Status: Never smoker Does the pt drink ETOH?: Yes Does the pt have substance abuse?: No - Immunizations Immunizations are current?: Yes - POLST Patient has POLST: No PD ED PE NORMAL - Vitals Vital signs reviewed: Yes - General General: Alert and oriented X 3 - HEENT HEENT: Atraumatic - Neck Neck: Supple, no meningeal sign - Respiratory Respiratory: No respiratory distress - Abdomen Abdomen: Normal bowel sounds, Soft - Back Back: No CVA TTP Results - Vitals Vitals: Vital Signs - 24 hr 11/06/23 08:55 Temperature 98.3 C H Heart Rate 66 Respiratory 16 Rate Blood Pressure 132/96 H O2 Saturation 98 Oxygen O2 Source Room air - Labs Labs: Laboratory Tests 11/06/23 09:10 Urine Color DARK YELLOW Urine Clarity CLEAR Urine pH 6.0 Ur Specific [place] 1.025 Urine Protein NEGATIVE Urine Glucose (UA) NEGATIVE Urine Ketones NEGATIVE Urine Occult Blood NEGATIVE Urine Nitrite NEGATIVE Urine Bilirubin NEGATIVE Urine Urobilinogen 0.2 (NORMAL) Ur Leukocyte Esterase SMALL H Ur Microscopic Review INDICATED Urine Culture Comments Not Reportable Urine HCG, Qual NEGATIVE PD Medical Decision Making - ED course Complexity details: reviewed results ED course: Uncomplicated lower UTI. Will treat her with Keflex and Zofran for nausea. Return instructions discussed Departure - Departure Disposition: Home, Self Care Clinical Impression: Urinary tract infection Condition: Good Instructions: ED UTI Cystitis Female Prescriptions: cephALEXin [Keflex] 500 mg PO Q6H #28 cap Ondansetron Odt [Zofran] 4 mg TL Q6H PRN #10 tablet PRN Reason: Nausea / Vomiting
[2023-11-06 09:50] LABS: BILIRUBIN,URINE NEGATIVE (NEGATIVE); CLARITY,URINE CLEAR (CLEAR); GLUCOSE, URINE (UA) NEGATIVE (NEGATIVE); KETONES,URINE (UA) NEGATIVE (NEGATIVE); LEUKOCYTE ESTERASE, URINE SMALL (NEGATIVE); NITRITE,URINE NEGATIVE (NEGATIVE); OCCULT BLOOD,URINE NEGATIVE (NEGATIVE); PROTEIN,URINE NEGATIVE (NEGATIVE); UROBILINOGEN,URINE 0.2 (NORMAL) E.U./dL (NORMAL)
[2023-11-06 09:52] LABS: HCG UR QUAL NEGATIVE
[2023-11-06 10:03] LABS: RBC,URINE 0-5 /HPF (0-5); SQUAMOUS EPITHELIAL CELL,UR MOD Squamous (<= Few); WBC,URINE 0-3 /HPF (0-5)
[2023-11-06 10:04] LABS: BACTERIA,URINE Moderate /HPF (None Seen)
[2023-11-06 10:16] VITALS: BP 132/82
== END 2023-11-06 10:14 | disposition home or self-care (01) ==
LOC: ED 08:36
DX: N39.0 Urinary tract infection, site not specified (principal)
CPT/HCPCS: 81001; 81003; 81025; 87086; 99283

== ENCOUNTER 2023-11-17 12:34 | Outpatient (CLI) | payer OTHER | END 2023-11-17 23:59 | disposition EMS.NT | LOC: EMS 12:34 | DX: R53.1 Weakness (principal); R53.83 Other fatigue; I10 Essential (primary) hypertension ==

== ENCOUNTER 2023-11-17 13:07 | Emergency (ER) | payer OTHER ==
[2023-11-17 13:45] LABS: BASOPHILS % (AUTO) 0.5 %; EOSINOPHILS # (AUTO) 0.4 10^3/uL (0.0-0.7); EOSINOPHILS % (AUTO) 4.6 %; HCT - HEMATOCRIT 39.4 % (37.0-47.0); LYMPHOCYTES # (AUTO) 2.4 10^3/uL (1.5-3.5); LYMPHOCYTES % (AUTO) 30.8 %; MEAN CORPUSCULAR HEMOGLOBIN 29.3 pg (27.0-31.0); MEAN CORPUSCULAR VOLUME 88.7 fL (81.0-99.0); MEAN PLATELET VOLUME 9.9 fL (7.9-10.8); MONOCYTES # (AUTO) 0.6 10^3/uL (0.0-1.0); NEUTROPHILS # (AUTO) 4.4 10^3/uL (1.5-6.6); NEUTROPHILS % (AUTO) 56.7 %; PLT - PLATELET COUNT 251 10^3/uL (130-450); RED BLOOD COUNT 4.44 10^6/uL (4.20-5.40); RED CELL DISTRIBUTION WIDTH 12.8 % (12.0-15.0); WHITE BLOOD COUNT 7.8 x10^3/uL (4.8-10.8)
[2023-11-17 14:02] LABS: ALBUMIN 4.5 g/dL (3.2-5.5); ALBUMIN/GLOBULIN RATIO 1.6 (1.0-2.2); BILIRUBIN,TOTAL 0.5 mg/dL (0.2-1.0); CALCIUM 9.6 mg/dL (8.5-10.3); CREATININE 0.5 mg/dL (0.6-1.3); POTASSIUM 3.2 mmol/L (3.5-4.5); TOTAL PROTEIN 7.3 g/dL (6.4-8.9)
[2023-11-17 14:05] LABS: TROPONIN I HIGH SENSITIVITY 3.5 ng/L (2.3-14.8)
--- NOTE | 2023-11-17 14:38 | ED Physician Documentation ---
PD HPI CHEST PAIN - Stated complaint Stated Complaint: SOA - Chief complaint Chief Complaint: Cardiac - Additional information Additional information: 38-year-old female presents emergency department for shortness of breath and chest discomfort. [place] she started to feel an out of body experience and from there her heart started to race. 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 She said that she has had this happen before but this feels more severe than previous episodes. She does endorse an history of panic attacks and anxiety but patient reports normally she has more significant chest pain that is worse more like chest pressure/ chest discomfort. She said it was then followed by mild shortness of breath. 911 was called and patient was brought in via EMS. She says that she is feeling slightly better now but feels very fatigued and exhausted. Patient also reports that she spent a very long day in the yard today doing yard work and it has been a lot more warm than normal. PD PAST MEDICAL HISTORY - Past Medical History Cardiovascular: None Respiratory: None Neuro: None GI: None : None Musculoskeletal: Chronic back pain - Past Surgical History Past Surgical History: Yes General: Appendectomy - Present Medications Home Medications: Ambulatory Orders Medication Instructions Recorded Confirmed Albuterol 2.5 mg .ROUTE PRN PRN 02/19/21 11/10/21 Ondansetron Odt [Zofran] 4 mg TL Q6H PRN #10 tablet 11/06/23 cephALEXin [Keflex] 500 mg PO Q6H #28 cap 11/06/23 - Allergies Allergies/Adverse Reactions: Allergies Allergy/AdvReac Type Severity Reaction Status Date / Time No Known Drug Allergies Allergy Verified 11/17/23 13:23 - Social History Does the pt smoke?: No Smoking Status: Never smoker Does the pt drink ETOH?: Yes Does the pt have substance abuse?: No - Immunizations Immunizations are current?: Yes - POLST Patient has POLST: No PD ED PE NORMAL - Vitals Vital signs reviewed: Yes - General General: Alert and oriented X 3, No acute distress, Well developed/nourished - Neck Neck: No JVD - Cardiac Cardiac: RRR, No murmur, No gallop, No rub, Strong equal pulses - Respiratory Respiratory: No respiratory distress, Clear bilaterally - Abdomen Abdomen: Normal bowel sounds, Soft, Non tender - Derm Derm: Normal color, Warm and dry, No rash - Psych Psych: Normal mood, Normal affect Results - Vitals Vitals: Vital Signs - 24 hr 11/17/23 11/17/23 13:17 16:39 Temperature 36.5 C Heart Rate 79 70 Respiratory 18 18 Rate Blood Pressure 137/84 H 130/77 O2 Saturation 100 98 Oxygen O2 Source Room air - EKG (time done) 1328 EKG releavant findings:: EKG personally interpreted by author of this note. Relevant findings are: Rate: Rate (enter#) (79) Rhythm: NSR [place]: Normal Intervals: Normal [place] QRS: Normal Ischemia: Normal ST segments Compare to prior EKG: Unchanged from prior EKG Computer interpretation: Agree with computer - Labs Labs: Laboratory Tests 11/17/23 11/17/23 11/17/23 13:40 13:40 13:40 WBC 7.8 RBC 4.44 Hgb 13.0 Hct 39.4 MCV 88.7 MCH 29.3 MCHC 33.0 RDW 12.8 Plt Count 251 MPV 9.9 Neut # (Auto) 4.4 Lymph # (Auto) 2.4 [place] # (Auto) 0.6 Eos # (Auto) 0.4 Baso # (Auto) 0.0 Absolute Nucleated RBC 0.00 Nucleated RBC % 0.0 Sodium 138 Potassium 3.2 L Chloride 105 Carbon Dioxide 25 Anion Gap 8.0 BUN 10 Creatinine 0.5 L Estimated GFR (MDRD) 138 Glucose 132 H Calcium 9.6 Magnesium 1.7 Total Bilirubin 0.5 AST 20 ALT 38 Alkaline Phosphatase 67 Troponin I High Sens 3.5 Total Protein 7.3 Albumin 4.5 Globulin 2.8 Albumin/Globulin Ratio 1.6 Lipase 67 11/17/23 13:48 WBC RBC Hgb Hct MCV MCH MCHC RDW Plt Count MPV Neut # (Auto) Lymph # (Auto) [place] # (Auto) Eos # (Auto) Baso # (Auto) Absolute Nucleated RBC Nucleated RBC % Sodium Potassium Chloride Carbon Dioxide Anion Gap BUN Creatinine Estimated GFR (MDRD) Glucose Calcium Magnesium Total Bilirubin AST ALT Alkaline Phosphatase Troponin I High Sens 2.3 Total Protein Albumin Globulin Albumin/Globulin Ratio Lipase - Rads (name of study) Chest x-ray Relevant Findings:: Final report received, EMP independent interpretation of test, Other (No acute cardiopulmonary process) PD Medical Decision Making - ED course ED course: Exam without evidence of volume overload so doubt heart failure. EKG without signs of active ischemia. Given the timing of pain to ER presentation, delta troponin was Negative so doubt NSTEMI. Presentation not consistent with acute PE (PERC negative), pneumothorax (not visualized on chest xr), thoracic aortic dissection, pericarditis, tamponade, pneumonia (no infectious symptoms, clear chest xr), myocarditis (no recent illness, neg trop). HEART score:0 so discharge patient home. Potassium and magnesium was replaced as she was found to be hypokalemic hypomagnesemic she was told to continue with hydration at home with electrolytes and to follow-up with primary care provider return precautions given. Departure - Departure Disposition: 01 Home, Self Care Clinical Impression: Hypokalemia, Hypomagnesemia, Heat exhaustion, Chest discomfort Instructions: Heat Stress Warning Signs Comments: Thank you for trusting us with your care. We have found that you have low potassium and low magnesium we replaced this here in the emergency department and I recommend going home drinking plenty of fluids drinking drinks with electrolytes in them such as coconut water to help with replenishment of your electrolytes. Please book with your primary care provider to let her know about today's ER visit and please come back to the emergency department if you are having any worsening or recurrent chest discomfort or pain. Forms: PCP List Discharge Date/Time: 11/17/23 16:39
[2023-11-17] MEDS: POTASSIUM CHLORIDE 20 MEQ TABLET PO STA ×2 (14:50)
--- NOTE | 2023-11-17 14:50 | XRAY Report ---
PROCEDURE: Chest 1V INDICATIONS: Chest pain TECHNIQUE: One view of the chest was acquired. COMPARISON: Chest radiographs 11/10/2021. FINDINGS: Surgical changes and devices: None. Lungs and pleura: No pleural effusions or pneumothorax. Lungs are clear. Mediastinum: Mediastinal contours appear normal. Heart size is normal. Bones and chest wall: No suspicious bony lesions. Overlying soft tissues appear unremarkable. IMPRESSION: No acute cardiopulmonary process. Reviewed by: Maik Low MD on 11/17/2023 2:49 PM PDT Approved by: Maik Low MD on 11/17/2023 2:49 PM PDT Station ID: [id number]
[2023-11-17 16:41] VITALS: BP 130/77; O2SAT 98
== END 2023-11-17 16:39 | disposition home or self-care (01) ==
LOC: ED 13:07
DX: R07.9 Chest pain, unspecified (principal); T67.5XXA Heat exhaustion, unspecified, initial encounter; X58.XXXA Exposure to other specified factors, initial encounter; E87.6 Hypokalemia; E83.42 Hypomagnesemia
CPT/HCPCS: 36415; 71045; 80053; 83690; 83735; 84484; 85025; 93005; 99284; A9270

== ENCOUNTER 2023-12-29 14:47 | Outpatient (CLI) | payer OTHER ==
[~2023-12-29 14:47] MED LIST: GADOTERATE MEGLUMINE 10 MMOL/20 ML VIAL ONE
--- NOTE | 2023-12-30 00:33 | MRI Report ---
PROCEDURE: Pelvis W/WO INDICATIONS: PELVIC PAIN CONTRAST: NONE TECHNIQUE: Coronal ultra fast SE, sagittal breath-hold T2 FSE; axial T1 FSE with and without fat saturation thro ugh the pelvis. Optional long- and short-axis uterine nonbreath-hold T2 FSE through the uterus. Sag ittal or axial dynamic ultra fast GE during administration of contrast. Post-contrast axial or coron al ultra fast GE / 2-D spoiled GE with fat saturation from the iliac crests to the symphysis. Option al diffusion weighted imaging and ADC may be performed. COMPARISON: None. FINDINGS: Image quality: Excellent. Uterus: Uterus is normal in size measuring 9.6 x 5.1 x 6.4 cm. No visible myometrial masses seen wi thout contrast. No exophytic lesions. The endometrium has an arcuate morphology. Endometrium is eve l in thickness at 4 mm.. Junctional zone is not well differentiated from background myometrium. The re are subcentimeter simple and proteinaceous nabothian cysts in the cervix. Adnexa: Both ovaries are normal in size, without suspicious cystic or solid lesions. Normal number of follicles. Urinary system: Bladder wall is normal in thickness. Distal ureters are non distended. Urethra harrison ears normal in morphology. Nodes and vessels: No pelvic or inguinal adenopathy by size criteria. Iliac vessels are normal in s ize. Bowel and peritoneum: No pathologic free pelvic fluid. Inferior colon and small bowel loops are nor mal in caliber. Soft tissues: No inguinal hernias. No findings of pelvic floor incompetence in the absence of provo cation. Bones: Marrow demonstrates normal overall signal. IMPRESSION: Arcuate, normal-sized uterus with an otherwise unremarkable appearance. No explanation for pelvic pain. Reviewed by: Corrina Lucero MD on 12/30/2023 12:32 AM PDT Approved by: Corrina Lucero MD on 12/30/2023 12:32 AM PDT Station ID: [id number]
== END 2023-12-29 14:48 | disposition home or self-care (01) ==
LOC: DI 14:47
PROVIDERS: ATTEND Nurse Practitioner Family
DX: R10.2 Pelvic and perineal pain (principal); R10.9 Unspecified abdominal pain
CPT/HCPCS: 72197; A9575

== ENCOUNTER 2024-01-05 14:45 | Outpatient (CLI) | payer OTHER ==
--- NOTE | 2024-01-05 23:50 | MRI Report ---
PROCEDURE: Abdomen without contrast INDICATIONS: UNSPECIFIED ABDOMINAL PAIN CONTRAST: NONE. Patient refused. TECHNIQUE: Coronal ultra fast SE, axial 2D spoiled GE in- and [id number]; axial breath-hold T2 fast SE. Dynam ic axial ultra fast GE during the administration of contrast; post-contrast coronal ultra fast GE or 2D spoiled GE with fat saturation from the hepatic dome to the iliac crests. Restricted diffusion marcos ghted imaging and ADC. COMPARISON: CT abdomen and pelvis 05/29/2019. FINDINGS: Image quality: Excellent. Lung bases and heart: Unremarkable. Liver: No solid mass. Hepatic steatosis. Gallbladder and biliary tree: Cholelithiasis without wall thickening. No choledocholithiasis. No bili jenaro dilation. No pericholecystic fluid. Spleen: No splenomegaly. Pancreas: No pancreatic ductal dilation. Adrenals: No adrenal nodule. Kidneys and ureters: No hydronephrosis. No renal cystic lesion which requires follow up. No solid mas s. Bowel and peritoneum: No bowel distension. No pathologic free fluid. Lymph nodes: No central or retroperitoneal adenopathy. Vessels: No infrarenal aortic aneurysm. Bones: No aggressive osseous abnormality. Other: No significant ventral hernia. IMPRESSION: Source of abdominal pain is not identified. No hydronephrosis. No free fluid. No biliary or pancreati c ductal dilatation. Gallbladder is filled with gallstones. Reviewed by: Remi Israel MD on 01/05/2024 11:49 PM PDT Approved by: Remi Israel MD on 01/05/2024 11:49 PM PDT Station ID: [id number]
== END 2024-01-05 14:46 | disposition home or self-care (01) ==
LOC: DI 14:45
PROVIDERS: ATTEND Nurse Practitioner Family
DX: R10.2 Pelvic and perineal pain (principal); K80.20 Calculus of gallbladder without cholecystitis without obstruction; Z87.440 Personal history of urinary (tract) infections; Z87.42 Personal history of other diseases of the female genital tract